=== PATIENT | female | born 1945 | race Caucasian/White ===

== ENCOUNTER → 2017-03-07 | Outpatient (CLI) | payer MEDICARE, BC ==
--- NOTE | 2017-03-09 12:14 | MM ---
Reason for exam: screening (asymptomatic). Last mammogram was performed 1 year ago. History: Patient is postmenopausal. Benign MG stereo VAD BX LT of the left breast, March 18, 2015. Physical Findings: A clinical breast exam by your physician is recommended on an annual basis and results should be correlated with mammographic findings. MG 3D Screening Mammo W/Cad Bilateral CC and MLO view(s) were taken. Prior study comparison: March 03, 2016, bilateral MG 3d screening mammo w/cad. September 22, 2015, left breast MG 3d diag mammo w/cad LT. March 05, 2015, left breast MG work up mamm w CAD LT. There are scattered fibroglandular densities. No suspicious abnormality. No significant changes when compared with prior studies. ASSESSMENT: Negative, BI-RAD 1 RECOMMENDATION: Routine screening mammogram of both breasts in 1 year.
== END | disposition home or self-care (01) ==
LOC: RADMAMWWP 11:44
PROVIDERS: ATTEND Family Medicine
DX: Z12.31 Encounter for screening mammogram for malignant neoplasm of breast (principal)
CPT/HCPCS: 77063; G0202

== ENCOUNTER → 2017-03-08 | Outpatient (CLI) | payer MEDICARE, BC ==
--- NOTE | 2017-03-08 12:57 | XR ---
EXAMINATION TYPE: XR tibia fibula LT DATE OF EXAM: 03/08/2017 CLINICAL HISTORY: Follow-up of a ladder with pain and bruising TECHNIQUE: Two views of the left leg are obtained. COMPARISON: None. FINDINGS: There is no acute fracture or dislocation seen in the left tibia or fibula. The left knee and ankle joints appear within normal limits. The overlying soft tissue appears unremarkable. IMPRESSION: There is no acute fracture or dislocation seen in the left tibia or fibula.
== END | disposition home or self-care (01) ==
LOC: RADXRMAIN 12:30
PROVIDERS: ATTEND Family Medicine
DX: M79.662 Pain in left lower leg (principal)

== ENCOUNTER → 2017-04-06 | Outpatient (CLI) | payer MEDICARE, BC ==
--- NOTE | 2017-04-06 15:51 | NM ---
EXAMINATION TYPE: NM hepatobiliary w EF DATE OF EXAM: 04/06/2017 COMPARISON: NONE HISTORY: 72 year-old female right upper quadrant pain TECHNIQUE: After the intravenous administration of 5.35 mCi Tc 99m Mebrofenin hepatobiliary scintigra phy is performed. Immediate images post injection. FINDINGS: There is satisfactory initial accumulation of tracer by the liver. The gallbladder is visualized wit hin 26 minutes. The small bowel activity is noted within 10 minutes. At one hour 8 ounces of oral e nsure plus is given to mimic CCK and gallbladder ejection fraction is calculated at 59 %, in the norm al range. Therefore there is no scintigraphic evidence of cystic or common bile duct obstruction to suggest acute cholecystitis or gallbladder dyskinesia. IMPRESSION: Exam is within normal limits.
== END | disposition home or self-care (01) ==
LOC: RADNMMAIN 12:41
PROVIDERS: ATTEND Family Medicine
DX: R10.11 Right upper quadrant pain (principal)
CPT/HCPCS: 78226; A9537

== ENCOUNTER → 2018-04-10 | Outpatient (CLI) | payer MEDICARE, BC ==
--- NOTE | 2018-04-10 08:57 | US ---
EXAMINATION TYPE: US carotid duplex BILAT DATE OF EXAM: 04/10/2018 COMPARISON: NONE CLINICAL HISTORY: R55.9. Family history of stenosis EXAM MEASUREMENTS: RIGHT: Peak Systolic Velocity (PSV) cm/sec ----- Right CCA: 58.4 ----- Right ICA: 98.2 ----- Right ECA: 97.8 ICA/CCA ratio: 1.7 RIGHT: End Diastole cm/sec ----- Right CCA: 19.1 ----- Right ICA: 32.2 ----- Right ECA: 13.1 LEFT: Peak Systolic Velocity (PSV) cm/sec ----- Left CCA: 83.4 ----- Left ICA: 88.9 ----- Left ECA: 57.5 ICA/CCA ratio: 1.1 LEFT: End Diastole cm/sec ----- Left CCA: 18.6 ----- Left ICA: 28.5 ----- Left ECA: 7.8 VERTEBRALS (direction of flow): Right Vertebral: Antegrade Left Vertebral: Antegrade Rhythm: Arrhythmia No significant stenosis seen IMPRESSION: 1. No diagnostic evidence of significant hemodynamic stenosis. 2. Cardiac dysrhythmia. Criteria for Assigning % of Stenosis / Diameter reduction (Estimation based on the indirect measurements of the internal carotid artery velocities (ICA PSV). 1. Normal (no stenosis)=ICA PSV < 125 cm/s: ratio < 2.0: ICA EDV<40 cm/s. 2. Less than 50% stenosis=ICA PSV < 125 cm/s: ratio < 2.0: ICA EDV<40 cm/s. 3. 50 to 69% stenosis=ICA PSV of 125 to 230 cm/s: ration 2.0 ? 4.0: ICA EDV 40-100 cm/s. 4. Greater than 70% stenosis to near occlusion= ICA PSV > 230 cm/s: ratio > 4.0: ICA EDV > 100 cm/s. 5. Near occlusion= ICA PSV velocities may be low or undetectable: variable ratio and ICA EDV. 6. Total occlusion=unable to detect flow.
--- NOTE | 2018-04-10 13:56 | EST ---
EXERCISE STRESS AGE: 73 SEX: F HT: 62" WT: 130 PROTOCOL: Stress Test STAGE: 3 DURATION OF EXERCISE: 8:30 HEART RATE REST: 67 BLOOD PRESSURE REST: 133/67 MAXIMUM HEART RATE ACHIEVED: 126 MAXIMUM BLOOD PRESSURE: 214/48 85% MPHR: 126 100% MPHR: 148 METS: 10.3 INDICATIONS: Chest pain. CLINICAL INFORMATION: Baseline rhythm is sinus mechanism, rate is 67, RSR prime. Poor R-wave progression. Baseline blood pressure 133/67 mmHg. Patient exercised on Leoncio protocol for 8 minutes 30 seconds reaching peak rate of 126 beats per minute which is equal to 85% maximum predicted heart rate. Peak blood pressure 214/48 mmHg. This was terminated due to fatigue. There was no chest pain. Electrocardiograph monitoring revealed occasional PVCs. There was no evidence of diagnostic ischemic ST deviation. CONCLUSION: 1. Good exercise tolerance with occasional premature ventricular contractions. 2. Normal cardiac response to exercise with no evidence of exercise induced ischemia. MMODL / IJN: [id number] /
== END ==
LOC: RADUSMAIN 08:04
PROVIDERS: ATTEND Family Medicine
DX: I49.9 Cardiac arrhythmia, unspecified (principal); R55 Syncope and collapse
CPT/HCPCS: 93017; 93880

== ENCOUNTER → 2018-04-12 | Outpatient (CLI) | payer MEDICARE, BC ==
--- NOTE | 2018-04-12 14:43 | CT ---
EXAMINATION TYPE: CT brain wo con DATE OF EXAM: 04/12/2018 COMPARISON: Prior head CT 03/25/2011 HISTORY: headaches CT DLP: 981 mGycm Automated exposure control for dose reduction was used. Helical acquisition through the brain. FINDINGS: Cerebral vascular calcifications are present. There is no hemorrhage or hydrocephalus. Calvarium is i ntact. Paranasal sinuses and mastoid air cells as visualized are normal. Orbits are symmetric. IMPRESSION: NO ACUTE ABNORMALITY.
--- NOTE | 2018-04-13 13:34 | ECHOF ---
Referral Reason:R07.89 chest Pain MEASUREMENTS -------- HEIGHT: 157.5 cm WEIGHT: 59.0 kg BP: RVIDd: 2.4 cm (< 3.3) IVSd: 0.8 cm (0.6 - 1.1) LVIDd: 4.4 cm (3.9 - 5.3) LVPWd: 0.9 cm (0.6 - 1.1) IVSs: 1.0 cm LVIDs: 3.1 cm LVPWs: 1.1 cm LA Diam: 2.8 cm (2.7 - 3.8) LAESV Index (A-L): 27.42 ml/m Ao Diam: 2.5 cm (2.0 - 3.7) AV Cusp: 1.7 cm (1.5 - 2.6) LA Diam: 3.7 cm (2.7 - 3.8) MV EXCURSION: 19.436 mm (> 18.000) MV EF SLOPE: 54 mm/s (70 - 150) EPSS: 0.3 cm MV E Yandel: 0.43 m/s MV DecT: 235 ms MV A Yandel: 0.69 m/s MV E/A Ratio: 0.63 AR PHT: 357 ms RAP: 5.00 mmHg RVSP: 27.98 mmHg FINDINGS -------- Sinus rhythm. This was a technically good study. LV size, wall thickness and systolic function are normal, with an EF greater than 55%. The left mejia tricular size is normal. The right ventricle is normal in size. The left atrial size is normal. The right atrial size is normal. There is mild aortic valve sclerosis. Trace amount of aortic regurgitation. The mitral valve leaflets are mildly thickened. Mild mitral regurgitation is present. Mild tricuspid regurgitation present. There is no evidence of pulmonary hypertension. The right v entricular systolic pressure, as measured by Doppler, is 27.98mmHg. There is no pulmonic regurgitation present. The aortic root size is normal. There is no pericardial effusion. CONCLUSIONS -------- 1. Sinus rhythm. 2. This was a technically good study. 3. LV size, wall thickness and systolic function are normal, with an EF greater than 55%. 4. The left ventricular size is normal. 5. The left atrial size is normal. 6. There is mild aortic valve sclerosis. 7. Trace amount of aortic regurgitation. 8. The mitral valve leaflets are mildly thickened. 9. Mild mitral regurgitation is present. 10. Mild tricuspid regurgitation present. 11. There is no evidence of pulmonary hypertension. 12. There is no pulmonic regurgitation present. 13. The aortic root size is normal. 14. There is no pericardial effusion. SPRAY PAINTER: Nury Lemon RDCS
== END | disposition home or self-care (01) ==
LOC: RADECHMAIN 13:50
PROVIDERS: ATTEND Family Medicine
DX: I08.3 Combined rheumatic disorders of mitral, aortic and tricuspid valves (principal); R55 Syncope and collapse
CPT/HCPCS: 70450; 93306

== ENCOUNTER → 2018-04-18 | Outpatient (CLI) | payer MEDICARE, BC ==
--- NOTE | 2018-04-20 07:53 | MM ---
Reason for exam: screening (asymptomatic). Last mammogram was performed 1 year and 1 month ago. History: Patient is postmenopausal. Benign MG stereo VAD BX LT of the left breast, March 18, 2015. Physical Findings: A clinical breast exam by your physician is recommended on an annual basis and results should be correlated with mammographic findings. MG 3D Screening Mammo W/Cad Bilateral CC and MLO view(s) were taken. Prior study comparison: March 07, 2017, bilateral MG 3d screening mammo w/cad. March 03, 2016, bilateral MG 3d screening mammo w/cad. There are scattered fibroglandular densities. Previous mammotome biopsy in the left breast. There is no discrete abnormality. ASSESSMENT: Benign, BI-RAD 2 RECOMMENDATION: Routine screening mammogram of both breasts in 1 year.
== END | disposition home or self-care (01) ==
LOC: RADMAMWWP 16:32
PROVIDERS: ATTEND Family Medicine
DX: Z12.31 Encounter for screening mammogram for malignant neoplasm of breast (principal)
CPT/HCPCS: 77063; 77067

== ENCOUNTER 2018-09-14 15:09 | Inpatient (IN) | payer MEDICARE, BC ==
[2018-09-14] MEDS ORDERED: NITROGLYCERIN OINT 1 INCH/GM PACKET TOPICAL STA (15:37)
[2018-09-14] MEDS ORDERED: ASPIRIN 81 MG PO STA (15:37)
--- NOTE | 2018-09-14 15:40 | ED ---
General Adult HPI - General Chief complaint: Chest Pain Stated complaint: Chest pain Time Seen by Provider: 09/14/18 15:15 Source: patient, RN notes reviewed Mode of arrival: ambulatory Limitations: no limitations - History of Present Illness Initial comments: This is a 73-year-old female who presents emergency Department with no significant past medical history. Patient comes in complaining of chest pain patient states started when she was doing some packing of white material and she had the pain under her right breast that radiated around into her back per patient states it was a significant pain and then she felt very weak on her legs and thought she might not be a little be strong enough to make it to her vehicle. Patient didn't think she was given a passout but just her legs were very weak at that time. Patient denies any difficulty breathing or shortness of breath per patient denies any nausea. Patient denies any diaphoretic episodes. Patient denies any recent injury. Patient does any heavy lifting or moving. Patient denies any recent fever chills or cough. Patient states the pain is worse with taking a deep breath but it is always kind of there for the last 2 hours. Patient states she does have a strong family history of heart disease. Patient denies any abdominal pain. Patient denies any nausea vomiting or diarrhea. Patient denies any leg swelling or calf tenderness. - Related Data Home Medications Medication Instructions Recorded Confirmed Ergocalciferol [Vitamin D2] 50,000 unit PO GUTIERREZ 09/14/18 09/14/18 Allergies Allergy/AdvReac Type Severity Reaction Status Date / Time nitrofurantoin AdvReac Chest Pain Verified 09/14/18 15:44 [From Macrobid] nitrofurantoin AdvReac Chest Pain Verified 09/14/18 15:44 macrocrystalline [From Macrobid] Review of Systems ROS Statement: Those systems with pertinent positive or pertinent negative responses have been documented in the HPI. ROS Other: All systems not noted in ROS Statement are negative. Past Medical History Past Medical History: GERD/Reflux, Osteoarthritis (OA) Additional Past Medical History / Comment(s): hiatal hernia, pleural effusions History of Any Multi-Drug Resistant Organisms: None Reported Past Surgical History: Bladder Surgery, Hysterectomy, Orthopedic Surgery Additional Past Surgical History / Comment(s): rt shoulder rotator cuff, thoracentesis/ c/t, RODERICK FUNDLOPLICATION Past Anesthesia/Blood Transfusion Reactions: No Reported Reaction Past Psychological History: No Psychological Hx Reported Smoking Status: Never smoker Past Alcohol Use History: None Reported Past Drug Use History: None Reported - Past Family History Mother Family Medical History: No Reported History Additional Family Medical History / Comment(s): at age 96 gave up after placement to longterm. Father Family Medical History: Dementia Additional Family Medical History / Comment(s): heart problems General Exam - General Exam Comments Initial Comments: GENERAL: Patient is well-developed and well-nourished. Patient is nontoxic and well- hydrated and is in mild distress ENT: Neck is soft and supple. No significant lymphadenopathy is noted. Oropharynx is clear. Moist mucous membranes. EYES: The sclera were anicteric and conjunctiva were pink and moist. Extraocular movements were intact and pupils were equal round and reactive to light. Eyelids were unremarkable. PULMONARY: Unlabored respirations. Good breath sounds bilaterally. No audible rales rhonchi or wheezing was noted. CARDIOVASCULAR: There is a regular rate and rhythm without any murmurs gallops or rubs. ABDOMEN: Soft and nontender with normal bowel sounds. No palpable organomegaly was noted. There is no palpable pulsatile mass. SKIN: Skin is clear with no lesions or rashes and otherwise unremarkable. NEUROLOGIC: Patient is alert and oriented x3. Cranial nerves II through XII are grossly intact. Motor and sensory are also intact. Normal speech, volume and content. Symmetrical smile. MUSCULOSKELETAL: Normal extremities with adequate strength and full range of motion. No lower extremity swelling or edema. No calf tenderness. LYMPHATICS: No significant lymphadenopathy is noted PSYCHIATRIC: Normal psychiatric evaluation. Limitations: no limitations Course Vital Signs 09/14/18 15:14 Temperature 97.8 F Pulse Rate 122 H Respiratory 18 Rate Blood Pressure 115/84 O2 Sat by Pulse 100 Oximetry Medical Decision Making - Medical Decision Making EKG shows sinus tachycardia at 101 bpm ME interval 262 QRS is 82 QT interval 356 QTC is 461. Patient's EKG shows no ST segment elevation or depression. Chest x-ray shows no acute abnormality. I gave the patient shot of Toradol because she did have some reproducible lateral chest wall pain. I spoke with Dr. Elias he agreed to admit the patient admitted the patient wrote admitting orders. I consulted cardiology continue Nitropaste and aspirin. - Lab Data Result diagrams: 09/14/18 15:30 03/08/19 15:30 Lab Results 09/14/18 09/14/18 09/14/18 Range/Units 15:30 15:30 15:30 WBC 11.1 H (3.8-10.6) k/uL RBC 3.40 L (3.80-5.40) m/uL Hgb 10.1 L (11.4-16.0) gm/dL Hct 30.5 L (34.0-46.0) % MCV 89.7 (80.0-100.0) fL MCH 29.6 (25.0-35.0) pg MCHC 33.0 (31.0-37.0) g/dL RDW 13.3 (11.5-15.5) % Plt Count 298 (150-450) k/uL Neutrophils % 73 % Lymphocytes % 21 % Monocytes % 4 % Eosinophils % 1 % Basophils % 0 % Neutrophils # 8.1 H (1.3-7.7) k/uL Lymphocytes # 2.3 (1.0-4.8) k/uL Monocytes # 0.4 (0-1.0) k/uL Eosinophils # 0.1 (0-0.7) k/uL Basophils # 0.0 (0-0.2) k/uL PT 10.3 (9.0-12.0) sec INR 1.0 (<1.2) APTT 23.2 (22.0-30.0) sec D-Dimer (<0.60) mg/L FEU Sodium 135 L (137-145) mmol/L Potassium 4.7 (3.5-5.1) mmol/L Chloride 105 (98-107) mmol/L Carbon Dioxide 24 (22-30) mmol/L Anion Gap 6 mmol/L BUN 54 H (7-17) mg/dL Creatinine 0.80 (0.52-1.04) mg/dL Est GFR (CKD-EPI)AfAm 85 (>60 ml/min/1.73 sqM) Est GFR (CKD-EPI)NonAf 74 (>60 ml/min/1.73 sqM) Glucose 111 H (74-99) mg/dL Calcium 9.0 (8.4-10.2) mg/dL Magnesium 1.6 (1.6-2.3) mg/dL Total Bilirubin 0.5 (0.2-1.3) mg/dL AST 16 (14-36) U/L ALT 32 (9-52) U/L Alkaline Phosphatase 50 (38-126) U/L Troponin I (0.000-0.034) ng/mL Total Protein 5.7 L (6.3-8.2) g/dL Albumin 3.3 L (3.5-5.0) g/dL 09/14/18 09/14/18 Range/Units 15:30 16:50 WBC (3.8-10.6) k/uL RBC (3.80-5.40) m/uL Hgb (11.4-16.0) gm/dL Hct (34.0-46.0) % MCV (80.0-100.0) fL MCH (25.0-35.0) pg MCHC (31.0-37.0) g/dL RDW (11.5-15.5) % Plt Count (150-450) k/uL Neutrophils % % Lymphocytes % % Monocytes % % Eosinophils % % Basophils % % Neutrophils # (1.3-7.7) k/uL Lymphocytes # (1.0-4.8) k/uL Monocytes # (0-1.0) k/uL Eosinophils # (0-0.7) k/uL Basophils # (0-0.2) k/uL PT (9.0-12.0) sec INR (<1.2) APTT (22.0-30.0) sec D-Dimer 0.45 (<0.60) mg/L FEU Sodium (137-145) mmol/L Potassium (3.5-5.1) mmol/L Chloride (98-107) mmol/L Carbon Dioxide (22-30) mmol/L Anion Gap mmol/L BUN (7-17) mg/dL Creatinine (0.52-1.04) mg/dL Est GFR (CKD-EPI)AfAm (>60 ml/min/1.73 sqM) Est GFR (CKD-EPI)NonAf (>60 ml/min/1.73 sqM) Glucose (74-99) mg/dL Calcium (8.4-10.2) mg/dL Magnesium (1.6-2.3) mg/dL Total Bilirubin (0.2-1.3) mg/dL AST (14-36) U/L ALT (9-52) U/L Alkaline Phosphatase (38-126) U/L Troponin I <0.012 (0.000-0.034) ng/mL Total Protein (6.3-8.2) g/dL Albumin (3.5-5.0) g/dL Disposition Clinical Impression: Chest pain Disposition: ADMITTED IP TO THIS HOSP Referrals: Jacques Robison DO [Primary Care Provider] - 1-2 days Time of Disposition: 17:57
[2018-09-14 16:00] LABS: Basophils % (A) 0 %; Eosinophils # (A) 0.1 k/uL (0-0.7); Eosinophils % (A) 1 %; HCT 30.5 % (34.0-46.0); HGB 10.1 gm/dL (11.4-16.0); Lymphocytes # (A) 2.3 k/uL (1.0-4.8); Lymphocytes % (A) 21 %; MCH 29.6 pg (25.0-35.0); MCV 89.7 fL (80.0-100.0); Mean Platelet Volume 7.1; Monocytes # (A) 0.4 k/uL (0-1.0); Monocytes % (A) 4 %; Neutrophils # (A) 8.1 k/uL (1.3-7.7); Neutrophils % (A) 73 %; Platelet Count 298 k/uL (150-450); RDW 13.3 % (11.5-15.5); WBC 11.1 k/uL (3.8-10.6)
[2018-09-14] MEDS ORDERED: SODIUM CHLORIDE 0.9% 1,000 ML IV ONE (16:01)
--- NOTE | 2018-09-14 16:09 | XR ---
EXAMINATION TYPE: XR chest 2V DATE OF EXAM: 09/14/2018 COMPARISON: 11/09/2015 HISTORY: Chest pain TECHNIQUE: Frontal and lateral views of the chest are obtained. FINDINGS: There is no focal air space opacity, pleural effusion, or pneumothorax seen. The cardiac silhouette size is within normal limits. The osseous structures are intact. There is partial visual ization of an S-shaped scoliotic curvature of the thoracolumbar spine. IMPRESSION: No acute cardiopulmonary process.
[2018-09-14 16:10] LABS: Albumin 3.3 g/dL (3.5-5.0); Magnesium 1.6 mg/dL (1.6-2.3); Potassium 4.7 mmol/L (3.5-5.1); Total Bilirubin 0.5 mg/dL (0.2-1.3); Total Protein 5.7 g/dL (6.3-8.2)
[2018-09-14 16:17] LABS: Partial Thromboplastin Time 23.2 sec (22.0-30.0); Prothrombin Time 10.3 sec (9.0-12.0)
[2018-09-14] MEDS ORDERED: KETOROLAC 60 MG/2 ML VIAL IVP STA (17:32)
[2018-09-14] MEDS ORDERED: NITROGLYCERIN SL TABS 0.4 MG TAB SUBLINGUAL PRN (17:58)
[2018-09-14] MEDS: NITROGLYCERIN OINT 1 INCH/GM PACKET TOPICAL SCH (18:32)
[2018-09-14] MEDS ORDERED: KETOROLAC 30 MG/ML 1 ML VIAL IVP SCH (21:00)
[2018-09-15] MEDS: NITROGLYCERIN OINT 1 INCH/GM PACKET TOPICAL SCH ×4 (01:08→16:47)
[2018-09-15 02:30] LABS: Cholesterol 138 mg/dL (<200); HDL Cholesterol 33 mg/dL (40-60); LDL Cholesterol,Calculated 70 mg/dL (0-99); Triglycerides 173 mg/dL (<150)
[2018-09-15 04:12] LABS: Basophils % (A) 0 %; Eosinophils # (A) 0.2 k/uL (0-0.7); Eosinophils % (A) 2 %; HCT 23.7 % (34.0-46.0); Hypochromasia Slight; Lymphocytes # (A) 2.8 k/uL (1.0-4.8); Lymphocytes % (A) 35 %; MCHC 31.1 g/dL (31.0-37.0); Mean Platelet Volume 7.4; Monocytes # (A) 0.5 k/uL (0-1.0); Monocytes % (A) 6 %; Neutrophils # (A) 4.3 k/uL (1.3-7.7); Neutrophils % (A) 54 %; Platelet Count 234 k/uL (150-450); RBC 2.55 m/uL (3.80-5.40); RDW 13.7 % (11.5-15.5); WBC 7.9 k/uL (3.8-10.6)
[2018-09-15 04:17] LABS: HGB 7.4 gm/dL (11.4-16.0)
[2018-09-15 04:24] LABS: Anion Gap 4 mmol/L; Blood Urea Nitrogen 59 mg/dL (7-17); Carbon Dioxide 21 mmol/L (22-30); Chloride 112 mmol/L (98-107); Glucose 92 mg/dL (74-99); Potassium 4.3 mmol/L (3.5-5.1); Sodium 137 mmol/L (137-145)
[2018-09-15] MEDS ORDERED: ASPIRIN 325 MG TAB PO SCH (09:00)
[2018-09-15 12:24] LABS: HCT 24.1 % (34.0-46.0); HGB 7.6 gm/dL (11.4-16.0); MCH 28.9 pg (25.0-35.0); MCHC 31.4 g/dL (31.0-37.0); MCV 92.2 fL (80.0-100.0); Mean Platelet Volume 7.4; Platelet Count 245 k/uL (150-450); RBC 2.61 m/uL (3.80-5.40); RDW 13.7 % (11.5-15.5); WBC 10.8 k/uL (3.8-10.6)
[2018-09-15] MEDS ORDERED: SODIUM FERRIC GLUCONAT-SUCROSE 125 MG in SODIUM CHLORIDE 0.9% 100 ML IVPB ONE (13:05)
--- NOTE | 2018-09-15 13:05 | P.HPIM ---
History of Present Illness H&P Date: 09/15/18 Chief Complaint: chest pain This is a 73-year-old female patient of Dr. Robison with past medical history for gastroesophageal reflux disease, osteoarthritis, hiatal hernia status post Roderick fundoplication. Patient complains of right sided chest pain under her breast and went to the back. She states this started when she was cleaning up the apartment and it lasted for at least a couple hours and most the day yesterday. She denies any heartburn, reflux, abdominal bloating. No tenderness is noted. No rashes noted. Patient does state that she has had b lack bowel movement and not sure how long this has been going on. Her last colonoscopy was [address] Lyons. Patient came into [facility] emergency center for evaluation. She has been afebrile, heart rate in the 80s, blood pressure 124/58, pulse ox 97% on room air. Troponins have been negative on 3 draws. Patient was noted to have a drop in her hemoglobin from 10.1-7.4. She did receive 1 L of fluids in the emergency center. Creatinine is 0.75 and BUN is 59. D-dimer 0.45. Triglycerides 173, cholesterol 138, LDL 70, HDL 33. EKG is sinus rhythm with no acute ST changes. Chest x-ray shows no acute abnormality. Patient has been placed on the cardiac stepdown unit and cardiology consult requested. We are discontinuing aspirin and asking for a consult with GI and stool to be obtained for occult blood. Iron studies ordered and patient will be given 1 dose of Ferrlecit IV. Review of Systems All systems: negative Constitutional: Denies chills, Denies fatigue, Denies fever, Denies weakness, Denies weight loss Eyes: denies blurred vision, denies diplopia, denies pain Ears, nose, mouth and throat: Denies dysphagia, Denies headache, Denies mouth pain, Denies sore throat, Denies vertigo Cardiovascular: Denies chest pain, Denies decreased exercise tolerance, Denies edema, Denies lightheadedness, Denies shortness of breath, Denies syncope Respiratory: Denies cough, Denies dyspnea, Denies excessive sputum, Denies hemoptysis, Denies home oxygen, Denies wheezing Gastrointestinal: Reports melena, Denies abdominal pain, Denies bloating, Denies coffee ground emesis, Denies diarrhea, Denies dyspepsia, Denies excessive gas, Denies heartburn, Denies hematemesis, Denies hematochezia, Denies loss of appetite, Denies nausea, Denies vomiting Genitourinary: Denies dysuria, Denies hematuria Musculoskeletal: Denies frequent falls, Denies gait dysfunction, Denies myalgias Integumentary: Denies pruritus, Denies rash, Denies wounds Neurological: Denies numbness, Denies weakness Psychiatric: Denies anxiety, Denies depression Endocrine: Denies fatigue, Denies weight change Past Medical History Past Medical History: GERD/Reflux, Osteoarthritis (OA) Additional Past Medical History / Comment(s): hiatal hernia, pleural effusions History of Any Multi-Drug Resistant Organisms: None Reported Past Surgical History: Bladder Surgery, Hysterectomy, Orthopedic Surgery Additional Past Surgical History / Comment(s): rt shoulder rotator cuff, thoracentesis/ c/t, RODERICK FUNDLOPLICATION -2014 Past Anesthesia/Blood Transfusion Reactions: No Reported Reaction Smoking Status: Never smoker Additional Past Alcohol Use History / Comment(s): Patient is a lifelong nonsmoker. She denies any marijuana or illicit drug use. No alcohol use. - Past Family History Mother Family Medical History: No Reported History Additional Family Medical History / Comment(s): Mother at age 96 from old age with history of hypertension. Father Family Medical History: Dementia Additional Family Medical History / Comment(s): Father in his 50s and patient does not know cause of his her medical history. Brother(s) Additional Family Medical History / Comment(s): Patient is a total of 5 surgeries one brother has had heart surgery, one brother has history of CVA and otherwise she does not know their medical history. Sister(s) Additional Family Medical History / Comment(s): The patient has 2 sisters and one from a brain aneurysm Daughter(s) Additional Family Medical History / Comment(s): Patient has 2 sons and one daughter and one has history of thyroid and hypertension Medications and Allergies Home Medications Medication Instructions Recorded Confirmed Type Ergocalciferol [Vitamin D2] 50,000 unit PO GUTIERREZ 09/14/18 09/14/18 History Allergies Allergy/AdvReac Type Severity Reaction Status Date / Time nitrofurantoin AdvReac Chest Pain Verified 09/14/18 15:44 [From Macrobid] nitrofurantoin AdvReac Chest Pain Verified 09/14/18 15:44 macrocrystalline [From Macrobid] Physical Exam Vitals: Vital Signs Temp Pulse Pulse Resp BP BP Pulse Ox 09/15/18 08:00 98 F 87 16 121/58 97 09/15/18 03:27 97.9 F 85 17 98/50 96 09/15/18 00:00 87 17 09/14/18 23:07 98.3 F 87 17 100/54 97 09/14/18 20:00 98.3 F 86 17 118/56 99 09/14/18 19:01 98.3 F 85 20 124/58 99 09/14/18 18:00 78 16 122/60 99 09/14/18 17:00 81 15 103/67 99 09/14/18 15:14 97.8 F 122 H 18 115/84 100 Intake and Output 09/14/18 09/15/18 09/15/18 22:59 06:59 14:59 Intake Total 800 Balance 800 Intake: Oral 800 Other: Voiding Method Toilet Toilet Toilet # Voids 2 Weight 57.606 kg 58.9 kg Gen: This is a 73-year-old female. She is resting in bed and appears to be comfortable and in no acute distress. HEENT: Head is atraumatic, normocephalic. Pupils equal, round. Sclerae is anicteric. NECK: Supple. No JVD. No lymphadenopathy. No thyromegaly. LUNGS: Clear to auscultation. No wheezes or rhonchi. No intercostal retractions. HEART: Regular rate and rhythm. No murmur. ABDOMEN: Soft. Bowel sounds are present. No masses. No tenderness. EXTREMITIES: No pedal edema. No calf tenderness. NEUROLOGICAL: Patient is awake, alert and oriented x3. Cranial nerves 2 through 12 are grossly intact. Results CBC & Chem 7: 09/15/18 12:04 09/15/18 03:42 Labs: Abnormal Lab Results - Last 24 Hours (Table) 09/14/18 09/14/18 09/14/18 Range/Units 15:30 15:30 15:30 WBC 11.1 H (3.8-10.6) k/uL RBC 3.40 L (3.80-5.40) m/uL Hgb 10.1 L (11.4-16.0) gm/dL Hct 30.5 L (34.0-46.0) % Neutrophils # 8.1 H (1.3-7.7) k/uL Sodium 135 L (137-145) mmol/L Chloride (98-107) mmol/L Carbon Dioxide (22-30) mmol/L BUN 54 H (7-17) mg/dL Glucose 111 H (74-99) mg/dL Calcium (8.4-10.2) mg/dL Total Protein 5.7 L (6.3-8.2) g/dL Albumin 3.3 L (3.5-5.0) g/dL Triglycerides 173 H (<150) mg/dL HDL Cholesterol 33 L (40-60) mg/dL 09/15/18 09/15/18 Range/Units 03:42 03:42 WBC (3.8-10.6) k/uL RBC 2.55 L (3.80-5.40) m/uL Hgb 7.4 L D (11.4-16.0) gm/dL Hct 23.7 L (34.0-46.0) % Neutrophils # (1.3-7.7) k/uL Sodium (137-145) mmol/L Chloride 112 H (98-107) mmol/L Carbon Dioxide 21 L (22-30) mmol/L BUN 59 H (7-17) mg/dL Glucose (74-99) mg/dL Calcium 8.0 L (8.4-10.2) mg/dL Total Protein (6.3-8.2) g/dL Albumin (3.5-5.0) g/dL Triglycerides (<150) mg/dL HDL Cholesterol (40-60) mg/dL Thrombosis Risk Factor Assmnt - DVT/VTE Prophylaxis DVT/VTE Prophylaxis: Pharmacologic Prophylaxis ordered - Choose All That Apply Each Risk Factor Represents 2 Points: Age 61-74 years Thrombosis Risk Factor Assessment Total Risk Factor Score: 2 Thrombosis Risk Factor Assessment Level: Low Risk Assessment and Plan Plan: 1. Right-sided chest pain. Troponins have been negative. Cardiology consult. 2. Acute GI bleed, most likely upper source. Anemia studies ordered, stool for occult blood to be sent, Ferrlecit 1 dose ordered, consults with GI for possible EGD/colonoscopy. Patient's last colonoscopy was 10 years ago. 3. Possible acute blood loss anemia. Monitor hemoglobin. 4. Gastroesophageal reflux disease and hiatal hernia status post Roderick fu ndoplication. 5. Osteoarthritis generalized. 6. DVT prophylaxis. SCDs and JOCELYNE floode. Patient placed as an observation status. Discharge plan: Home on Monday Impression and plan of care have been directed as dictated by the signing physician. Rupinder Dixon nurse practitioner acting as scribe for signing physician.
--- NOTE | 2018-09-15 14:40 | P.CRDCN ---
History of Present Illness History of present illness: This is a pleasant 73-year-old female with no significant past medical history she denies history of coronary artery disease, hypertension, dyslipidemia or diabetes mellitus. We have been asked to see her in consultation for chest pain. She states yesterday while doing some light housework at home she started feeling a sharp pain under the right breast with radiation through to the back associated with dizziness and weakness of the legs and nausea. She denies associated vomiting, shortness of breath or palpitations. no diaphoresis. These symptoms persisted for the next couple of hours until she decided to present to the hospital. Upon arrival she was given Toradol which relieved her pain. EKG reveals sinus mechanism with nonspecific abnormalities noted. Chest x-ray is negative for an acute cardiopulmonary process. Lab data reviewed reveals WBC 11.1 on admission repeat today 10.8, hemoglobin on admission 10.1 down to 7.6 today, platelets 245, d-dimer 0.45, sodium 137, potassium 4.3, creatinine 0.75, magnesium 1.6,cardiac enzymes negative 3, LDL 70, HDL 33. She takes no daily cardiac medications. She is seen and examined laying flat resting comfortably in bed in no acute distress. She denies any further symptoms of chest discomfort. She states she has been having some black stools recently. No active paulie blood or pain. At the time of my exam: CONSTITUTIONAL: Denies fever. Denies chills. EYES: Denies blurred vision. Denies vision changes. Denies eye pain. EARS, NOSE, MOUTH & THROAT: Denies headache. Denies sore throat. Denies ear pain. CARDIOVASCULAR: Denies chest pain. Denies shortness of breath. Denies orthopnea. Denies PND. Denies palpitations. RESPIRATORY: Denies cough. GASTROINTESTINAL: Denies abdominal pain. Denies diarrhea. Denies constipation. Denies nausea. Denies vomiting. Describes some black stools lately. MUSCULOSKELETAL: Denies myalgias. INTEGUMENTARY: Denies pruitis. Denies rash. NEUROLOGIC: Denies numbness. Denies tingling. Denies weakness. PSYCHIATRIC: Denies anxiety. Denies depression. ENDOCRINE: Denies fatigue. Denies weight change. Denies polydipsia. Denies polyurina. GENITOURINARY: Denies burning, hematuria or urgency with micturation. HEMATOLOGIC: Denies history of anemia. Denies bleeding. Blood pressure 121/58 heart rate 87 afebrile maintaining oxygen saturation on room air GENERAL: This is a 73-year-old female in no apparent distress at the time of my examination. HEENT: Head is atraumatic, normocephalic. Pupils are equal, round. Sclerae anicteric. Conjunctivae are clear. Mucous membranes of the mouth are moist. Neck is supple. There is no jugular venous distention. No carotid bruit is heard. LUNGS: Clear to auscultation no wheezes, rales or rhonchi. No chest wall tenderness is noted on palpation or with deep breathing. HEART: Regular rate and rhythm without murmurs, rubs or gallops. S1 and S2 heard. ABDOMEN: Soft, nontender. Bowel sounds are heard. No organomegaly noted. EXTREMITIES: No evidence of peripheral edema and no calf tenderness noted. VASCULAR: Radial and dorsalis pedis pulses palpated, no evidence of clubbing. NEUROLOGIC: Patient is awake, alert and oriented x3. ASSESSMENT Chest pain, atypical. An acute coronary event has been ruled out. Anemia, unknown etiology possible upper GI bleed. PLAN An acute coronary event has been ruled out. Symptoms not suggestive of angina. Fatigue and weakness may be related to anemia. Ongoing medical management and evaluation by GI services. Stable from a cardiac perspective. Thank you kindly for this consultation. Nurse Practitioner note has been reviewed, I agree with a documented findings and plan of care. Patient was seen and examined. Past Medical History Past Medical History: GERD/Reflux, Osteoarthritis (OA) Additional Past Medical History / Comment(s): hiatal hernia, pleural effusions History of Any Multi-Drug Resistant Organisms: None Reported Past Surgical History: Bladder Surgery, Hysterectomy, Orthopedic Surgery Additional Past Surgical History / Comment(s): rt shoulder rotator cuff, thoracentesis/ c/t, RODERICK FUNDLOPLICATION -2014 Past Anesthesia/Blood Transfusion Reactions: No Reported Reaction Smoking Status: Never smoker - Past Family History Mother Family Medical History: No Reported History Additional Family Medical History / Comment(s): at age 96 gave up after placement to custodial. Father Family Medical History: Dementia Additional Family Medical History / Comment(s): heart problems Brother(s) Additional Family Medical History / Comment(s): Patient is a total of 5 surgeries one brother has had heart surgery, one brother has history of CVA and otherwise she does not know their medical history. Sister(s) Additional Family Medical History / Comment(s): The patient has 2 sisters and one from a brain aneurysm Daughter(s) Additional Family Medical History / Comment(s): Patient has 2 sons and one daughter and one has history of thyroid and hypertension Medications and Allergies Home Medications Medication Instructions Recorded Confirmed Type Ergocalciferol [Vitamin D2] 50,000 unit PO GUTIERREZ 09/14/18 09/14/18 History Allergies Allergy/AdvReac Type Severity Reaction Status Date / Time nitrofurantoin AdvReac Chest Pain Verified 09/14/18 15:44 [From Macrobid] nitrofurantoin AdvReac Chest Pain Verified 09/14/18 15:44 macrocrystalline [From Macrobid] Physical Exam Vitals: Vital Signs Temp Pulse Pulse Resp BP BP Pulse Ox 09/15/18 08:00 98 F 87 16 121/58 97 09/15/18 03:27 97.9 F 85 17 98/50 96 09/15/18 00:00 87 17 09/14/18 23:07 98.3 F 87 17 100/54 97 09/14/18 20:00 98.3 F 86 17 118/56 99 09/14/18 19:01 98.3 F 85 20 124/58 99 09/14/18 18:00 78 16 122/60 99 09/14/18 17:00 81 15 103/67 99 09/14/18 15:14 97.8 F 122 H 18 115/84 100 Intake and Output 09/14/18 09/15/18 09/15/18 22:59 06:59 14:59 Intake Total 800 Balance 800 Intake: Oral 800 Other: Voiding Method Toilet Toilet Toilet # Voids 2 Weight 57.606 kg 58.9 kg Results 09/15/18 12:04 09/15/18 03:42 Cardiac Enzymes 09/14/18 09/14/18 09/14/18 Range/Units 15:30 15:30 21:22 AST 16 (14-36) U/L Troponin I <0.012 <0.012 (0.000-0.034) ng/mL 09/15/18 Range/Units 03:42 AST (14-36) U/L Troponin I <0.012 (0.000-0.034) ng/mL Coagulation 09/14/18 Range/Units 15:30 PT 10.3 (9.0-12.0) sec APTT 23.2 (22.0-30.0) sec Lipids 09/14/18 Range/Units 15:30 Triglycerides 173 H (<150) mg/dL Cholesterol 138 (<200) mg/dL HDL Cholesterol 33 L (40-60) mg/dL CBC 09/14/18 09/15/18 Range/Units 15:30 03:42 WBC 11.1 H 7.9 (3.8-10.6) k/uL RBC 3.40 L 2.55 L (3.80-5.40) m/uL Hgb 10.1 L 7.4 L D (11.4-16.0) gm/dL Hct 30.5 L 23.7 L (34.0-46.0) % Plt Count 298 234 (150-450) k/uL Comprehensive Metabolic Panel 09/14/18 09/15/18 Range/Units 15:30 03:42 Sodium 135 L 137 (137-145) mmol/L Potassium 4.7 4.3 (3.5-5.1) mmol/L Chloride 105 112 H (98-107) mmol/L Carbon Dioxide 24 21 L (22-30) mmol/L BUN 54 H 59 H (7-17) mg/dL Creatinine 0.80 0.75 (0.52-1.04) mg/dL Glucose 111 H 92 (74-99) mg/dL Calcium 9.0 8.0 L (8.4-10.2) mg/dL AST 16 (14-36) U/L ALT 32 (9-52) U/L Alkaline Phosphatase 50 (38-126) U/L Total Protein 5.7 L (6.3-8.2) g/dL Albumin 3.3 L (3.5-5.0) g/dL Current Medications Generic Name Dose Route Start Last Admin Trade Name Freq PRN Reason Stop Dose Admin Aspirin 325 mg 09/15/18 09:00 09/15/18 08:48 Aspirin PO 325 mg DAILY KHLOE Administration Nitroglycerin 1 inch 09/14/18 18:00 09/15/18 05:53 Nitro-Bid Oint TOPICAL Not Given Q6HR [facility] Nitroglycerin 0.4 mg 09/14/18 17:58 09/14/18 20:35 Nitrostat SUBLINGUAL 0.4 mg Q5M PRN Administration Chest Pain Intake and Output 09/14/18 09/15/18 09/15/18 22:59 06:59 14:59 Intake Total 800 Balance 800 Intake: Oral 800 Other: Voiding Method Toilet Toilet Toilet # Voids 2 Weight 57.606 kg 58.9 kg 09/15/18 03:42 09/15/18 03:42
[2018-09-15 16:36] LABS: Iron Saturation 36.9 (12.00-45.00)
[2018-09-15] MEDS: PANTOPRAZOLE 40 MG TABLET PO SCH (16:47)
[2018-09-15 19:28] LABS: MCH 31.7 pg (25.0-35.0); MCHC 34.7 g/dL (31.0-37.0); MCV 91.5 fL (80.0-100.0); Mean Platelet Volume 7.1; Platelet Count 216 k/uL (150-450); RBC 2.13 m/uL (3.80-5.40); RDW 13.6 % (11.5-15.5); WBC 7.7 k/uL (3.8-10.6)
[2018-09-15 19:33] LABS: HCT 19.5 % (34.0-46.0); HGB 6.7 gm/dL (11.4-16.0)
[2018-09-15] MEDS ORDERED: FUROSEMIDE 10 MG/ML 2 ML VIAL IV PRN (20:24)
[2018-09-16] MEDS: NITROGLYCERIN OINT 1 INCH/GM PACKET TOPICAL SCH ×4 (01:03→17:05)
[2018-09-16 03:37] LABS: Basophils % (A) 0 %; Eosinophils # (A) 0.3 k/uL (0-0.7); Eosinophils % (A) 3 %; HCT 26.4 % (34.0-46.0); Lymphocytes % (A) 28 %; MCV 90.8 fL (80.0-100.0); Monocytes # (A) 0.5 k/uL (0-1.0); Monocytes % (A) 5 %; Neutrophils # (A) 6.6 k/uL (1.3-7.7); Neutrophils % (A) 63 %; Platelet Count 241 k/uL (150-450); RDW 14.4 % (11.5-15.5); WBC 10.5 k/uL (3.8-10.6)
[2018-09-16 04:11] LABS: HGB 8.7 gm/dL (11.4-16.0)
[2018-09-16] MEDS: PANTOPRAZOLE 40 MG TABLET PO SCH ×2 (07:05→17:05)
[2018-09-16 07:25] LABS: Basophils % (A) 0 %; Eosinophils # (A) 0.1 k/uL (0-0.7); Eosinophils % (A) 1 %; HCT 24.3 % (34.0-46.0); Lymphocytes # (A) 2.2 k/uL (1.0-4.8); Lymphocytes % (A) 22 %; MCH 29.2 pg (25.0-35.0); MCHC 32.7 g/dL (31.0-37.0); MCV 89.3 fL (80.0-100.0); Mean Platelet Volume 7.5; Monocytes # (A) 0.5 k/uL (0-1.0); Monocytes % (A) 5 %; Neutrophils % (A) 71 %; Platelet Count 229 k/uL (150-450); RBC 2.73 m/uL (3.80-5.40); RDW 14.5 % (11.5-15.5); WBC 9.8 k/uL (3.8-10.6)
[2018-09-16 07:30] LABS: Anion Gap 5 mmol/L; Blood Urea Nitrogen 41 mg/dL (7-17); Calcium 8.2 mg/dL (8.4-10.2); Carbon Dioxide 24 mmol/L (22-30); Chloride 108 mmol/L (98-107); Glucose 97 mg/dL (74-99); Potassium 3.9 mmol/L (3.5-5.1); Sodium 137 mmol/L (137-145)
[2018-09-16 12:08] LABS: HCT 24.3 % (34.0-46.0); HGB 7.8 gm/dL (11.4-16.0); MCH 28.6 pg (25.0-35.0); MCV 89.3 fL (80.0-100.0); Mean Platelet Volume 7.4; Platelet Count 240 k/uL (150-450); RBC 2.72 m/uL (3.80-5.40); RDW 14.3 % (11.5-15.5); WBC 11.6 k/uL (3.8-10.6)
--- NOTE | 2018-09-16 15:03 | P.PN ---
Subjective This is a 73-year-old female patient of Dr. Robison with past medical history for gastroesophageal reflux disease, osteoarthritis, hiatal hernia status post Thong fundoplication. Patient complains of right sided chest pain under her breast and went to the back. She states this started when she was cleaning up the apartment and it lasted for at least a couple hours and most the day yesterday. She denies any heartburn, reflux, abdominal bloating. No tenderness is noted. No rashes noted. Patient does state that she has had black bowel movement and not sure how long this has been going on. Her last colonoscopy was [address] Lyons. Patient came into [facility] emergency center for evaluation. She has been afebrile, heart rate in the 80s, blood pressure 124/58, pulse ox 97% on room air. Troponins have been negative on 3 draws. Patient was noted to have a drop in her hemoglobin from 10.1-7.4. She did receive 1 L of fluids in the emergency center. Creatinine is 0.75 and BUN is 59. D-dimer 0.45. Triglycerides 173, cholesterol 138, LDL 70, HDL 33. EKG is sinus rhythm with no acute ST changes. Chest x-ray shows no acute abnormality. Patient has been placed on the cardiac stepdown unit and cardiology consult requested. We are discontinuing aspirin and asking for a consult with GI and stool to be obtained for occult blood. Iron studies ordered and patient will be given 1 dose of Ferrlecit IV. 09/16: Patient remains afebrile, heart rate in the 80s, blood pressure 110/53, 98% on room air. Hemoglobin 7.8, BUN 41, creatinine 0.47. Iron 100, TIBC 271, iron saturation 36.9, ferritin 40.8. Patient did receive 1 unit of packed red blood cells yesterday, she continues to have dark tarry stools and right lower quadrant tenderness. GI consulted, patient remains on clear liquid diet will be nothing by mouth after midnight for possible EGD. Cardiology consult appreciated Objective - Vital Signs Vital signs: Vital Signs Temp 97.9 F 09/16/18 11:42 Pulse 83 09/16/18 11:42 Resp 18 09/16/18 11:42 BP 110/53 09/16/18 11:42 Pulse Ox 98 09/16/18 11:42 Intake & Output 09/15/18 09/16/18 09/16/18 17:59 06:59 18:59 Intake Total 400 Balance 400 Weight Intake: Oral 400 Blood Product As-1 Unit [id number] Other: Voiding Method Toilet # Voids # Bowel Movements - Constitutional General appearance: Present: average body habitus, cooperative, no acute distr ess - Respiratory Respiratory: bilateral: CTA, negative: dullness, rales, rhonchi, wheezing - Cardiovascular Rhythm: regular Heart sounds: normal: S1, S2 - Gastrointestinal General gastrointestinal: Present: normal bowel sounds, soft, tenderness. Absent: distended, organomegaly Localized gastrointestinal: tender: RLQ - Neurologic Neurologic: Present: CNII-XII intact. Absent: focal deficits - Musculoskeletal Musculoskeletal: Present: gait normal, generalized weakness, strength equal bilaterally - Psychiatric Psychiatric: Present: A&O x's 3, appropriate affect, intact judgment & insight - Labs CBC & Chem 7: 09/16/18 12:00 09/16/18 06:58 Labs: Abnormal Lab Results - Last 24 Hours (Table) 09/14/18 09/15/18 09/15/18 Range/Units 15:30 12:04 18:59 WBC 10.8 H (3.8-10.6) k/uL RBC 2.61 L 2.13 L (3.80-5.40) m/uL Hgb 7.6 L 6.7 L* (11.4-16.0) gm/dL Hct 24.1 L 19.5 L* (34.0-46.0) % Chloride (98-107) mmol/L BUN (7-17) mg/dL Calcium (8.4-10.2) mg/dL Stool Occult Blood (Negative) Crossmatch See Detail 09/15/18 09/16/18 09/16/18 Range/Units 19:03 03:22 06:58 WBC (3.8-10.6) k/uL RBC 2.90 L (3.80-5.40) m/uL Hgb 8.7 L D (11.4-16.0) gm/dL Hct 26.4 L (34.0-46.0) % Chloride 108 H (98-107) mmol/L BUN 41 H (7-17) mg/dL Calcium 8.2 L (8.4-10.2) mg/dL Stool Occult Blood Positive H (Negative) Crossmatch 09/16/18 Range/Units 06:58 WBC (3.8-10.6) k/uL RBC 2.73 L (3.80-5.40) m/uL Hgb 8.0 L (11.4-16.0) gm/dL Hct 24.3 L (34.0-46.0) % Chloride (98-107) mmol/L BUN (7-17) mg/dL Calcium (8.4-10.2) mg/dL Stool Occult Blood (Negative) Crossmatch Assessment and Plan Plan: 1. Right-sided chest pain. Troponins have been negative. Cardiology consult. 2. Acute GI bleed, most likely upper source. Anemia studies completed, stool for occult blood positive, Ferrlecit 1 dose, consults with GI for possible EGD/ colonoscopy. Patient's last colonoscopy was 10 years ago, patient given one unit of packed red blood cells 09/15. 3. Possible acute blood loss anemia. Monitor hemoglobin. 4. Gastroesophageal reflux disease and hiatal hernia status post Thong fundoplication. 5. Osteoarthritis generalized. 6. DVT prophylaxis. SCDs and JOCELYNE andrews. The above impression and plan of care have been discussed and directed by signing physician. Socorro Sears nurse practitioner acting as scribe for signing physician.
[2018-09-17] MEDS: NITROGLYCERIN OINT 1 INCH/GM PACKET TOPICAL SCH ×4 (00:42→17:42)
[2018-09-17] MEDS: PANTOPRAZOLE 40 MG TABLET PO SCH ×2 (06:01→17:58)
[2018-09-17 09:51] LABS: Basophils # (A) 0.1 k/uL (0-0.2); Basophils % (A) 1 %; Eosinophils # (A) 0.1 k/uL (0-0.7); Eosinophils % (A) 2 %; HGB 8.1 gm/dL (11.4-16.0); Lymphocytes # (A) 2.7 k/uL (1.0-4.8); Lymphocytes % (A) 29 %; MCH 30.9 pg (25.0-35.0); MCHC 33.6 g/dL (31.0-37.0); MCV 91.8 fL (80.0-100.0); Mean Platelet Volume 6.9; Monocytes # (A) 0.6 k/uL (0-1.0); Monocytes % (A) 7 %; Neutrophils # (A) 5.5 k/uL (1.3-7.7); Neutrophils % (A) 61 %; Platelet Count 271 k/uL (150-450); RBC 2.61 m/uL (3.80-5.40); WBC 9.1 k/uL (3.8-10.6)
[2018-09-17 10:01] LABS: Anion Gap 5 mmol/L; Blood Urea Nitrogen 22 mg/dL (7-17); Calcium 8.6 mg/dL (8.4-10.2); Carbon Dioxide 24 mmol/L (22-30); Chloride 109 mmol/L (98-107); Glucose 90 mg/dL (74-99); Potassium 4.1 mmol/L (3.5-5.1); Sodium 138 mmol/L (137-145)
[2018-09-17 11:06] VITALS: RESP 16; TEMP 98.2
[2018-09-17] MEDS ORDERED: LIDOCAINE 1% INJ 10MG/ML (20 ML MDV) ONE (16:33)
[2018-09-17] MEDS ORDERED: PROPOFOL 10 MG/ML 20 ML VIAL IV ONE (16:33)
[2018-09-17] MEDS ORDERED: LACTATED RINGERS 1,000 ML IV ONE ×2 (16:38)
--- NOTE | 2018-09-17 17:23 | P.PCN ---
Date of Procedure: 09/17/18 Procedure(s) Performed: Procedure: Esophagogastroduodenoscopy and biopsy. Preoperative diagnosis: GI bleeding and anemia. Postoperative diagnosis: 1. Antral gastritis and duodenitis with no active bleeding at the time of this exam. 2. Biopsies obtained from the antrum to rule out H. pylori infection. Preparation and sedation: Was provided by anesthesia. Brief clinical history: The patient is a 73-year-old female with past medical history of gastroesophageal reflux disease, osteoarthritis, hiatal hernia status post Thong fundoplication. Patient complained of right sided chest pain under her breast radiating to the back. She states this started when she was cleaning up the apartment and it lasted for at least a couple hours and most the day the day prior to admission. She denied any heartburn, reflux, abdominal bloating. Patient does state that she has had black bowel movement and not sure how long this has been going on. Her last colonoscopy was 10 years ago. Troponins have been negative on 3 draws. Patient was noted to have a drop in her hemoglobin from 10.1-7.4. Low-dose hemoglobin this admission was 6.7, today its 8.1. The details are summarized in the history and physical and dictated consultations and progress notes. Procedure: With the patient on her left lateral decubitus position and after informed consent and adequate sedation, I passed the Olympus-GIF H190 video upper endoscope through the cricopharyngeus down the esophagus. There was no evidence of esophagitis or complicated reflux disease. The Thong fundoplication appeared in place. The endoscope was then passed into the stomach which was insufflated with air and inspected in detail including the retroflex view in the cardia. There was some mottling and erythema in the antrum and a few fading erosions but no ulcers or active bleeding. Pyloric channel did not show any ulcers. Duodenal bulb showed some mottling and erythema and minimal friability without any ulcers or erosions. Post bulbar area and descending duodenum appeared normal. There was no evidence of bleeding at the time of this exam. I obtained biopsies from the antrum then the endoscope was withdrawn. The patient tolerated the procedure well. Plan: The patient was reassured. Will await biopsy results for H. pylori infection. We will continue medical therapy for gastritis and duodenitis. Consideration can be given for elective colonoscopy as outpatient since she had had no colonoscopy for more than 10 years and since we did not find a major bleeding lesion on this exam today.
[2018-09-17 17:41] VITALS: BP 125/60; PULSE 72
--- NOTE | 2018-09-17 19:46 | P.CONS ---
History of Present Illness - Reason for Consult Consult date: 09/16/18 Black stools, GI bleed - History of Present Illness The patient is a 73-year-old female with past medical history of gastro esophageal reflux disease, osteoarthritis, hiatal hernia status post Roderick fundoplication. Patient complained of right sided chest pain under her breast radiating to the back. She states this started when she was cleaning up the apartment and it lasted for at least a couple hours and most the day the day prior to admission. She denied any heartburn, reflux, abdominal bloating. Patient does state that she has had black bowel movement and not sure how long this has been going on. Her last colonoscopy was 10 years ago. Troponins have been negative on 3 draws. Patient was noted to have a drop in her hemoglobin from 10.1-7.4. Lowest hemoglobin this admission was 6.7, today its 8.1. Review of Systems Constitutional: Denied fever, chills or unintentional weight loss Neurologic: No headaches, double vision or other sensory or motor changes Cardiopulmonary: No chest pains, shortness of breath or palpitations Gastrointestinal: See present illness above Genitourinary: No hematuria, dysuria or frequency Endocrine: No history of diabetes or thyroid disease Hematologic: No history of anemia or bleeding tendency Musculoskeletal: No joint pains or swelling Skin: No rashes Psychiatric: No anxiety or depression Past Medical History Past Medical History: GERD/Reflux, Osteoarthritis (OA) Additional Past Medical History / Comment(s): hiatal hernia, pleural effusions History of Any Multi-Drug Resistant Organisms: None Reported Past Surgical History: Bladder Surgery, Hysterectomy, Orthopedic Surgery Additional Past Surgical History / Comment(s): rt shoulder rotator cuff, thoracentesis/ c/t, RODERICK FUNDLOPLICATION Past Anesthesia/Blood Transfusion Reactions: No Reported Reaction Smoking Status: Never smoker - Past Family History Brother(s) Additional Family Medical History / Comment(s): Patient is a total of 5 surgeries one brother has had heart surgery, one brother has history of CVA and otherwise she does not know their medical history. Sister(s) Additional Family Medical History / Comment(s): The patient has 2 sisters and one from a brain aneurysm Daughter(s) Additional Family Medical History / Comment(s): Patient has 2 sons and one daughter and one has history of thyroid and hypertension Mother Family Medical History: No Reported History Additional Family Medical History / Comment(s): at age 89 gave up after placement to residential. Father Family Medical History: Dementia Additional Family Medical History / Comment(s): heart problems Medications and Allergies Home Medications Medication Instructions Recorded Confirmed Type Ergocalciferol [Vitamin D2 50,000 unit PO GUTIERREZ 09/14/18 09/14/18 History (ISDSHERICE)] Pantoprazole [Protonix] 40 mg PO AC-BID #60 tablet. 09/17/18 Rx Allergies Allergy/AdvReac Type Severity Reaction Status Date / Time nitrofurantoin AdvReac Chest Pain Verified 09/14/18 15:44 [From Macrobid] nitrofurantoin AdvReac Chest Pain Verified 09/14/18 15:44 macrocrystalline [From Macrobid] Physical Exam Vitals: Vital Signs Temp Pulse Pulse Resp BP BP Pulse Ox 09/16/18 11:42 97.9 F 83 16 110/53 98 09/16/18 08:00 97.6 F 93 18 112/59 99 09/16/18 03:38 85 18 09/16/18 03:36 98 F 85 18 115/75 97 09/16/18 01:11 98 F 83 17 108/58 97 09/16/18 00:00 98 F 86 17 125/65 97 09/15/18 23:15 98 F 86 17 118/56 97 09/15/18 22:45 98.3 F 90 17 107/53 98 09/15/18 22:44 98.3 F 90 17 107/53 98 09/15/18 22:35 98 F 84 18 122/56 98 09/15/18 20:00 98.2 F 82 17 125/62 97 09/15/18 16:00 98.2 F 91 18 104/52 95 09/15/18 11:12 98.1 F 86 18 102/55 97 Intake and Output 09/15/18 09/16/18 09/16/18 21:59 06:59 14:59 Intake Total 400 Balance 400 Intake: Oral 400 Blood Product Rc As-1 Unit [id number] Other: Voiding Method Toilet # Voids # Bowel Movements Weight General: Appeared stated age, very pleasant in no acute distress Head and neck: Normocephalic and atraumatic, conjunctivae pink and sclerae not icteric, mucous membranes moist and pink. No masses in the neck or tracheal shifts Lungs: Clear to auscultation with no dullness to percussion Heart: Regular, no abnormal sounds, murmurs, gallops or friction rubs ABDOMEN: Soft no masses, organomegalies or tenderness. Bowel sounds present Extremities: No clubbing, cyanosis or edema Neurologic: Alert and oriented 3. Cranial nerves grossly intact. No gross sensory or motor other abnormalities Results CBC & Chem 7: 09/17/18 09:17 09/17/18 09:17 Labs: Abnormal Lab Results - Last 24 Hours (Table) 09/14/18 09/15/18 09/15/18 Range/Units 15:30 12:04 18:59 WBC 10.8 H (3.8-10.6) k/uL RBC 2.61 L 2.13 L (3.80-5.40) m/uL Hgb 7.6 L 6.7 L* (11.4-16.0) gm/dL Hct 24.1 L 19.5 L* (34.0-46.0) % Chloride (98-107) mmol/L BUN (7-17) mg/dL Calcium (8.4-10.2) mg/dL Stool Occult Blood (Negative) Crossmatch See Detail 09/15/18 09/16/18 09/16/18 Range/Units 19:03 03:22 06:58 WBC (3.8-10.6) k/uL RBC 2.90 L (3.80-5.40) m/uL Hgb 8.7 L D (11.4-16.0) gm/dL Hct 26.4 L (34.0-46.0) % Chloride 108 H (98-107) mmol/L BUN 41 H (7-17) mg/dL Calcium 8.2 L (8.4-10.2) mg/dL Stool Occult Blood Positive H (Negative) Crossmatch 09/16/18 Range/Units 06:58 WBC (3.8-10.6) k/uL RBC 2.73 L (3.80-5.40) m/uL Hgb 8.0 L (11.4-16.0) gm/dL Hct 24.3 L (34.0-46.0) % Chloride (98-107) mmol/L BUN (7-17) mg/dL Calcium (8.4-10.2) mg/dL Stool Occult Blood (Negative) Crossmatch Assessment and Plan Assessment: 73-year-old female with atypical chest pain, black stools and drop in hemoglobin. The possibility of peptic ulcer disease should be considered. Plan: We will proceed with upper endoscopy tomorrow.
--- NOTE | 2018-09-18 09:01 | P.DS ---
Providers Date of admission: 09/16/18 07:40 Expected date of discharge: 09/17/18 Attending physician: Adrienne Elias Consults: 09/14/18 17:58 Consult Physician Urgent Consulting Provider: [facility] Consult Reason/Comments: chest ppain Do you want consulting provider notified?: Yes 09/15/18 10:59 Consult Physician Routine Consulting Provider: Roopa Givens Consult Reason/Comments: black stools, gib Do you want consulting provider notified?: Yes Primary care physician: Jacques GarnerBetsy Layne [facility] Course: This is a 73-year-old female patient of Dr. Robison with past medical history for gastroesophageal reflux disease, osteoarthritis, hiatal hernia status post Thong fundoplication. Patient complains of right sided chest pain under her breast and went to the back. She states this started when she was cleaning up the apartment and it lasted for at least a couple hours and most the day yesterday. She denies any heartburn, reflux, abdominal bloating. No tenderness is noted. No rashes noted. Patient does state that she has had black bowel movement and not sure how long this has been going on. Her last colonoscopy was [address] Lyons. Patient came into [facility] emergency center for evaluation. She has been afebrile, heart rate in the 80s, blood pressure 124/58, pulse ox 97% on room air. Troponins have been negative on 3 draws. Patient was noted to have a drop in her hemoglobin from 10.1-7.4. She did receive 1 L of fluids in the emergency center. Creatinine is 0.75 and BUN is 59. D-dimer 0.45. Triglycerides 173, cholesterol 138, LDL 70, HDL 33. EKG is sinus rhythm with no acute ST changes. Chest x-ray shows no acute abnormality. Patient has been placed on the cardiac stepdown unit and cardiology consult requested. We are discontinuing aspirin and asking for a consult with GI and stool to be obtained for occult blood. Iron studies ordered and patient will be given 1 dose of Ferrlecit IV. 09/16: Patient remains afebrile, heart rate in the 80s, blood pressure 110/53, 98% on room air. Hemoglobin 7.8, BUN 41, creatinine 0.47. Iron 100, TIBC 271, iron saturation 36.9, ferritin 40.8. Patient did receive 1 unit of packed red blood cells yesterday, she continues to have dark tarry stools and right lower quadrant tenderness. GI consulted, patient remains on clear liquid diet will be nothing by mouth after midnight for possible EGD. Cardiology consult appreciated 09/17: Patient underwent EGD and biopsy with Dr. Landis today. This found antral gastritis and duodenitis and no active bleeding at the time of the exam. Biopsies were obtained from the antrum to rule out H. pylori infection. Pathology reports are currently pending. Hemoglobin is stable at 8.1. Creatinine 0.76. Patient will be discharged home today in stable condition. Discharge diagnoses: 1. Right-sided chest pain. Troponins have been negative. Acute coronary syndrome ruled out. 2. Acute GI bleed secondary to gastritis and duodenitis. Status post transfusion of 1 unit of packed RBCs. 3. Possible acute blood loss anemia. 4. Gastroesophageal reflux disease and hiatal hernia status post Thong fundoplication. 5. Osteoarthritis generalized. Discharge plan: Home Impression and plan of care have been directed as dictated by the signing physician. Rupinder Dixon nurse practitioner acting as scribe for signing physician. Patient Condition at Discharge: Good Plan - Discharge Summary Discharge Rx Participant: Yes New Discharge Prescriptions: New Pantoprazole [Protonix] 40 mg PO AC-BID #60 tablet.dr Coffman Ergocalciferol [Vitamin D2 (DRISDOL)] 50,000 unit PO GUTIERREZ Discharge Medication List Ergocalciferol [Vitamin D2 (DRISDOL)] 50,000 unit PO GUTIERREZ 09/14/18 [History] Pantoprazole [Protonix] 40 mg PO AC-BID #60 tablet. 09/17/18 [Rx] Follow up Appointment(s)/Referral(s): Mendoza Landis MD [STAFF PHYSICIAN] - 10/02/18 3:30 pm (Monday) Jacques Robison DO [Primary Care Provider] - 1 Week (Spoke to safety engineer pressure vessels. Office will call with appointment time) Patient Instructions/Handouts: Gastritis (DC), Gastrointestinal Bleeding (DC), Low Fiber Diet (DC), Upper Endoscopy (DC) Activity/Diet/Wound Care/Special Instructions: Soft. Low fiber diet for one week. Discharge Disposition: HOME SELF-CARE
== END 2018-09-17 18:50 | disposition home or self-care (01) | DRG 378 ==
LOC: EC 15:09 → 3SCARD 17:58 → OBSVTOIN 09-16 07:40
PROVIDERS: ADMIT Family Medicine; ATTEND Family Medicine
PROC: 30233N1 Transfusion of Nonautologous Red Blood Cells into Peripheral Vein, Percutaneous Approach (ICD-10-PCS; 2018-09-15)
PROC: 0DB78ZX Excision of Stomach, Pylorus, Via Natural or Artificial Opening Endoscopic, Diagnostic (ICD-10-PCS; principal; 2018-09-17 09:35)
DX: K29.71 Gastritis, unspecified, with bleeding (principal); D62 Acute posthemorrhagic anemia; K29.81 Duodenitis with bleeding; K21.9 Gastro-esophageal reflux disease without esophagitis; R07.89 Other chest pain; M15.9 Polyosteoarthritis, unspecified; Z79.899 Other long term (current) drug therapy; Z90.710 Acquired absence of both cervix and uterus; Z87.19 Personal history of other diseases of the digestive system; Z88.1 Allergy status to other antibiotic agents; Z81.8 Family history of other mental and behavioral disorders; Z82.49 Family history of ischemic heart disease and other diseases of the circulatory system; Z82.3 Family history of stroke; Z83.49 Family history of other endocrine, nutritional and metabolic diseases
CPT/HCPCS: 36415; 43239; 71046; 80048; 80053; 80061; 82272; 82728; 83540; 83550; 83735; 84484; 85025; 85027; 85379; 85610; 85730; 86850; 86900; 86901; 86920; 93005; 94760; 96361; 96374; 99285

== ENCOUNTER → 2018-10-19 | Outpatient (CLI) | payer MEDICARE, BC ==
[2018-10-19 11:22] LABS: Basophils % (A) 0 %; Eosinophils # (A) 0.2 k/uL (0-0.7); Eosinophils % (A) 2 %; HCT 35.7 % (34.0-46.0); HGB 10.9 gm/dL (11.4-16.0); Hypochromasia Marked; Lymphocytes # (A) 2.2 k/uL (1.0-4.8); Lymphocytes % (A) 22 %; MCH 27.1 pg (25.0-35.0); MCHC 30.5 g/dL (31.0-37.0); MCV 88.7 fL (80.0-100.0); Mean Platelet Volume 7.2; Monocytes # (A) 0.6 k/uL (0-1.0); Monocytes % (A) 6 %; Neutrophils % (A) 69 %; Platelet Count 465 k/uL (150-450); Poikilocytosis Slight; RBC 4.03 m/uL (3.80-5.40); RDW 14.2 % (11.5-15.5); WBC 10.1 k/uL (3.8-10.6)
[2018-10-19 17:40] LABS: Iron Saturation 5.57 (12.00-45.00)
== END | disposition home or self-care (01) ==
LOC: LAB 09:49
PROVIDERS: ATTEND Internal Medicine Gastroenterology
DX: D64.9 Anemia, unspecified (principal)
CPT/HCPCS: 82607; 82746; 82784; 83516; 83540; 83550; 85025

== ENCOUNTER → 2019-03-18 | Outpatient (CLI) | payer MEDICARE, BC ==
--- NOTE | 2019-03-18 09:11 | XR ---
EXAMINATION TYPE: XR chest 2V DATE OF EXAM: 03/18/2019 COMPARISON: Chest x-ray September 14, 2018 HISTORY: Chest pain after lifting strain injury. TECHNIQUE: Frontal and lateral views of the chest are obtained. FINDINGS: There is right mid lung linear scarring. There is some chronic left basilar parenchymal ch anges without suspicious new focal air space opacity, pleural effusion, or pneumothorax seen. The ca rdiac silhouette size is within normal limits. S-shaped scoliosis is noted. IMPRESSION: No acute cardiopulmonary process. No significant change from prior.
== END | disposition home or self-care (01) ==
LOC: RADXRMAIN 08:45
PROVIDERS: ATTEND Family Medicine
DX: R07.9 Chest pain, unspecified (principal)
CPT/HCPCS: 71046

== ENCOUNTER → 2019-06-13 | Outpatient (CLI) | payer MEDICARE, BC ==
--- NOTE | 2019-06-14 13:55 | MM ---
Reason for exam: screening (asymptomatic). Last mammogram was performed 1 year and 2 months ago. History: Patient is postmenopausal. Benign MG stereo VAD BX LT of the left breast, March 18, 2015. Physical Findings: A clinical breast exam by your physician is recommended on an annual basis and results should be correlated with mammographic findings. MG 3D Screening Mammo W/Cad Bilateral CC and MLO view(s) were taken. Prior study comparison: April 18, 2018, bilateral MG 3d screening mammo w/cad. March 07, 2017, bilateral MG 3d screening mammo w/cad. There are scattered fibroglandular densities. Left biopsy marker. No significant changes when compared with prior studies. ASSESSMENT: Negative, BI-RAD 1 RECOMMENDATION: Routine screening mammogram of both breasts in 1 year.
== END | disposition home or self-care (01) ==
LOC: RADMAMWWP 07:06
PROVIDERS: ATTEND Family Medicine
DX: Z12.31 Encounter for screening mammogram for malignant neoplasm of breast (principal)
CPT/HCPCS: 77063; 77067

== ENCOUNTER → 2019-06-18 | Outpatient (CLI) | payer MEDICARE, BC ==
--- NOTE | 2019-06-18 09:53 | XR ---
EXAMINATION TYPE: XR cervical spine comp DATE OF EXAM: 06/18/2019 COMPARISON: NONE HISTORY: Pain TECHNIQUE: Four views are submitted. FINDINGS: The odontoid is intact. There are no compression deformities. The prevertebral soft tissue structur es are within normal limits. There is an anterolisthesis of C5 relative to C6 measuring 2 mm. Multil evel hypertrophic change seen with degenerative disc disease at C6-C7. Multilevel facet arthropathy. Foraminal encroachment suspected at levels C5-6 and C6-C7 bilaterally greater on the right lung apice s clear. IMPRESSION: 1. Multilevel hypertrophic changes and facet arthropathy with a grade 1 anterior listhesis of C5 rela tive to C6. MRI recommended. 2. Severe degenerative disc disease C6-C7. Bilateral foraminal encroachment greater on the right at C 5-6 and C6-C7.
== END | disposition home or self-care (01) ==
LOC: RADXRMAIN 09:30
PROVIDERS: ATTEND Family Medicine
DX: M50.323 Other cervical disc degeneration at C6-C7 level (principal); M43.12 Spondylolisthesis, cervical region; M46.92 Unspecified inflammatory spondylopathy, cervical region
CPT/HCPCS: 72050

== ENCOUNTER → 2019-07-09 | Outpatient (CLI) | payer MEDICARE, BC ==
--- NOTE | 2019-07-09 10:04 | MR ---
MRI CERVICAL SPINE: CLINICAL HISTORY: Degenerative disc disease per order. Neck pain with hand numbness for interpretatio n. TECHNIQUE: Multiplanar, multisequence imaging of the cervical spine is performed without contrast. COMPARISON: Cervical spine x-ray June 18, 2019. FINDINGS: Sagittal images of the cervical spine show the craniocervical junction to appear within nor mal limits. The cervical and upper thoracic spinal cord is normal in course, caliber, and signal. St able slight grade 1 retrolisthesis C6 on C7. The vertebral height are normal. Mild to moderate disc space narrowing C6-C7 level with mild anterior spurring. The bone marrow signal intensity is within n ormal limits. Axial images show the C2-C3 and C3-C4 level to appear within normal limits. Axial images at C4-C5 level shows central disc protrusion producing anterior thecal sac. Uncovertebra l facet degenerative changes are noted bilaterally causing mild bilateral neural foraminal narrowing. Axial images at C5-C6 level show tiny central disc protrusion mildly effacing the anterior thecal sac . Axial images at C6-C7 levels from broad-based right precentral disc protrusion effacing the anterior thecal sac and causing asymmetric mild to moderate right-sided neural foraminal narrowing. Axial images at C7-T1 level are within normal limits. IMPRESSION: Multilevel degenerative changes mid to lower cervical spine most prominent at C6-C7 level as detailed above.
== END | disposition home or self-care (01) ==
LOC: RADMRIMAIN 09:14
PROVIDERS: ATTEND Family Medicine
DX: M47.812 Spondylosis without myelopathy or radiculopathy, cervical region (principal)
CPT/HCPCS: 72141

== ENCOUNTER → 2020-04-08 | Outpatient (CLI) | payer MEDICARE, BC ==
--- NOTE | 2020-04-08 08:41 | XR ---
EXAMINATION TYPE: XR humerus RT DATE OF EXAM: 04/08/2020 COMPARISON: NONE HISTORY: Pain TECHNIQUE: 2 views submitted. FINDINGS: Osseous structures intact. No acute fracture.. Arthropathy of the shoulder. IMPRESSION: 1. No acute fracture or dislocation.
== END | disposition home or self-care (01) ==
LOC: RADXRMAIN 08:18
PROVIDERS: ATTEND Family Medicine
DX: M79.621 Pain in right upper arm (principal)

== ENCOUNTER 2020-04-29 09:29 | Inpatient (IN) | payer MEDICARE, BC ==
[2020-04-29] MEDS ORDERED: SODIUM CHLORIDE 0.9% 500 ML 500 ML IV STA (10:17)
[2020-04-29] MEDS ORDERED: ASPIRIN 81 MG PO STA (10:18)
[2020-04-29 10:34] LABS: Basophils # (A) 0.1 k/uL (0-0.2); Basophils % (A) 1 %; Eosinophils # (A) 0.3 k/uL (0-0.7); Eosinophils % (A) 2 %; HCT 41.6 % (34.0-46.0); HGB 13.6 gm/dL (11.4-16.0); Lymphocytes # (A) 1.6 k/uL (1.0-4.8); Lymphocytes % (A) 13 %; MCH 30.1 pg (25.0-35.0); MCHC 32.6 g/dL (31.0-37.0); MCV 92.2 fL (80.0-100.0); Mean Platelet Volume 6.7; Monocytes % (A) 8 %; Neutrophils # (A) 9.7 k/uL (1.3-7.7); Neutrophils % (A) 75 %; Platelet Count 476 k/uL (150-450); RBC 4.51 m/uL (3.80-5.40); RDW 13.2 % (11.5-15.5); WBC 12.9 k/uL (3.8-10.6)
[2020-04-29 10:41] LABS: Albumin 3.3 g/dL (3.5-5.0); Calcium 8.9 mg/dL (8.4-10.2); Total Bilirubin 0.9 mg/dL (0.2-1.3); Total Protein 6.4 g/dL (6.3-8.2)
[2020-04-29 10:45] LABS: Amorphous Sediment,Urine Occasional /hpf; Appearance,Urine Cloudy (Clear); Bilirubin,Urine Negative (Negative); Blood,Urine Large (Negative); Color,Urine Light Red; Glucose,Urine (UA) Negative (Negative); Hyaline Casts,Urine 2 /lpf (0-2); Ketones,Urine Negative (Negative); Leukocyte Esterase,Urine Trace (Negative); Mucus,Urine Moderate /hpf; Nitrite,Urine Negative (Negative); PH, Urine 5.5 (5.0-8.0); Protein,Urine 2+ (Negative); RBC,Urine 75 /hpf (0-5); Specific Gravity,Urine 1.019 (1.001-1.035); Squamous Epithelial Cell,Urine 2 /hpf (0-4); Urobilinogen,Urine <2.0 mg/dL (<2.0); WBC,Urine 26 /hpf (0-5)
[2020-04-29 10:46] LABS: Potassium 5.1 mmol/L (3.5-5.1)
--- NOTE | 2020-04-29 11:03 | CT ---
EXAMINATION TYPE: CT brain wo con DATE OF EXAM: 04/29/2020 HISTORY: Headache CT DLP: 1129.4 mGycm. Automated Exposure Control for Dose Reduction was Utilized. TECHNIQUE: CT scan of the head is performed without contrast. COMPARISON: CT brain April 12, 2018. FINDINGS: There is no acute intracranial hemorrhage or midline shift identified. There is diffuse v entricular and sulcal prominence consistent with diffuse age-related cerebral atrophy. There is low- attenuation in the periventricular white matter consistent with chronic small vessel ischemic change. New [id number] mucosal thickening and patchy fluid in the right sphenoid sinus otherwise para nasal sinuses remain clear. Globes are intact bilaterally. IMPRESSION: No acute intracranial hemorrhage or midline shift. There is mild diffuse age-related ce rebral atrophy and chronic small vessel ischemic change redemonstrated without significant interval c hange. New Acute on chronic right sphenoid sinus disease noted. Correlate clinically.
--- NOTE | 2020-04-29 11:04 | XR ---
EXAMINATION TYPE: XR chest 2V DATE OF EXAM: 04/29/2020 CLINICAL HISTORY: cough, fever. TECHNIQUE: Frontal and lateral view of the chest. COMPARISON: 03/18/2019 chest radiograph FINDINGS: The cardiomediastinal silhouette is within normal limits for size. Pulmonary vasculature i s normal. Mild haziness is of the left costophrenic angle likely atelectasis. There is no focal air s pace opacity, pleural effusion, or pneumothorax seen. Redemonstrated levocurvature of the lumbar spin e. IMPRESSION: Left basilar atelectasis. No focal airspace opacity.
[2020-04-29] MEDS ORDERED: AZITHROMYCIN 500 MG in SODIUM CHLORIDE 0.9% 250 ML IVPB STA (12:04)
[2020-04-29] MEDS ORDERED: NITROGLYCERIN SL TABS 0.4 MG TAB SUBLINGUAL PRN (12:15)
--- NOTE | 2020-04-29 12:16 | ED ---
General Adult HPI - General Chief complaint: Shortness of Breath Stated complaint: SOB, cough Time Seen by Provider: 04/29/20 10:10 Source: patient, RN notes reviewed, old records reviewed Mode of arrival: ambulatory Limitations: no limitations - History of Present Illness Initial comments: 75-year-old female patient presents to ED for evaluation. Patient states that for the last 2 weeks or so she has had a cough, frontal headaches, patient is having some pain in her proximal sternal region. Reports that when she coughs she has some shortness of breath. Denies any shortness of breath at baseline. She was seen by her primary care provider today who recommended that she be admitted for likely pneumonia and tested for Covid 19. Patient reported fever of 102F at home. Systemic: Pt denies fatigue, chills, rash. Pt denies weakness, night sweats, weight loss. Neuro: Pt denies headache, visual disturbances, syncope or pre-syncope. HEENT: Pt denies ocular discharge or irritation, otalgia, rhinorrhea, pharyngitis or notable lymphadenopathy. Cardiopulmonary: Pt denies heart palpitations, dyspnea on exertion. Abdominal/GI: Pt denies n/v/d. : Pt denies dysuria, burning w/ urination, frequency/urgency. Denies new onset urinary or bowel incontinence. MSK: Pt denies myalgia, loss of strength or function in extremities. Neuro: Pt denies new onset weakness, paresthesias. - Related Data Home Medications Medication Instructions Recorded Confirmed Ergocalciferol [Vitamin D2 50,000 unit PO GUTIERREZ 09/14/18 04/29/20 (DRISDOL)] Ferrous Sulfate [Feosol] 325 mg PO DAILY 04/29/20 04/29/20 Allergies Allergy/AdvReac Type Severity Reaction Status Date / Time nitrofurantoin AdvReac Chest Pain Verified 04/29/20 11:20 [From Macrobid] nitrofurantoin AdvReac Chest Pain Verified 04/29/20 11:20 macrocrystalline [From Macrobid] Review of Systems ROS Statement: Those systems with pertinent positive or pertinent negative responses have been documented in the HPI. ROS Other: All systems not noted in ROS Statement are negative. Past Medical History Past Medical History: GERD/Reflux, Osteoarthritis (OA) Additional Past Medical History / Comment(s): hiatal hernia, pleural effusions History of Any Multi-Drug Resistant Organisms: None Reported Past Surgical History: Bladder Surgery, Hysterectomy, Orthopedic Surgery Additional Past Surgical History / Comment(s): rt shoulder rotator cuff, thoracentesis/ c/t, RODERICK FUNDLOPLICATION Past Anesthesia/Blood Transfusion Reactions: No Reported Reaction Past Psychological History: No Psychological Hx Reported Smoking Status: Never smoker Past Alcohol Use History: None Reported Past Drug Use History: None Reported - Past Family History Brother(s) Additional Family Medical History / Comment(s): Patient is a total of 5 surgeries one brother has had heart surgery, one brother has history of CVA and otherwise she does not know their medical history. Sister(s) Additional Family Medical History / Comment(s): The patient has 2 sisters and one from a brain aneurysm Daughter(s) Additional Family Medical History / Comment(s): Patient has 2 sons and one daughter and one has history of thyroid and hypertension Mother Family Medical History: No Reported History Additional Family Medical History / Comment(s): at age 96 gave up after placement to shelter. Father Family Medical History: Dementia Additional Family Medical History / Comment(s): heart problems General Exam - General Exam Comments Initial Comments: Constitutional: NAD, AOX3, Pt has pleasant affect. HEENT: NC/AT, trachea midline, neck supple, no lymphadenopathy. External ears appear normal, without discharge. Mucous membranes moist. Eyes PERRLA, EOM intact. There is no scleral icterus. No pallor noted. Cardiopulmonary: RRR, no murmurs, rubs or gallops, no JVD noted. Lungs CTAB in anterior and posterior leon. No peripheral edema. Abdominal exam: Abdomen soft and non-distended. Abdomen non-tender to palpation in all 4 quadrants. Bowel sounds active in LLQ. No hepatosplenomegaly. No ecchymosis Neuro: CN II-XII grossly intact. No nuchal rigidity. No raccon eyes, no oliveira sign, no hemotympanum. No cervical spinal tenderness. MSK: No posterior calf tenderness bilaterally, homans sign negative bilaterally. Posterior tibialis and radial pulse +2 bilaterally. Sensation intact in upper and lower extremities. Full active ROM in upper and lower extremities, 5/5 stregnth. Limitations: no limitations Course Vital Signs 10/04/29/20 04/29/20 09:46 10:14 10:38 Temperature 98.9 F Pulse Rate 100 97 Respiratory 20 18 18 Rate Blood Pressure 122/76 141/75 O2 Sat by Pulse 97 97 Oximetry 04/29/20 12:03 Temperature Pulse Rate 81 Respiratory 14 Rate Blood Pressure 141/75 O2 Sat by Pulse 98 Oximetry Medical Decision Making - Medical Decision Making 75-year-old female patient to ED for evaluation of cough, fever. This has been ongoing for the last 2 weeks. Patient also reports that she's been having frontal headaches. Patient vital signs are stable, afebrile. Physical exam displayed intact neurologic exam. Laboratory investigations display leukocytosis. Brain CT displays sinus disease. Chest x-ray displayed left bibasilar atelectasis. EKG is nonischemic. Patient tested for Covid 19. Patient initiated on IV antibiotics. Will be admitted for further evaluation. Case discussed with Dr. Elam. - Lab Data Result diagrams: 04/29/20 10:23 04/29/20 10:23 Lab Results 04/29/20 04/29/20 04/29/20 Range/Units 10:23 10:23 10:23 WBC 12.9 H (3.8-10.6) k/uL RBC 4.51 (3.80-5.40) m/uL Hgb 13.6 (11.4-16.0) gm/dL Hct 41.6 (34.0-46.0) % MCV 92.2 (80.0-100.0) fL MCH 30.1 (25.0-35.0) pg MCHC 32.6 (31.0-37.0) g/dL RDW 13.2 (11.5-15.5) % Plt Count 476 H (150-450) k/uL Neutrophils % 75 % Lymphocytes % 13 % Monocytes % 8 % Eosinophils % 2 % Basophils % 1 % Neutrophils # 9.7 H (1.3-7.7) k/uL Lymphocytes # 1.6 (1.0-4.8) k/uL Monocytes # 1.0 (0-1.0) k/uL Eosinophils # 0.3 (0-0.7) k/uL Basophils # 0.1 (0-0.2) k/uL Sodium 134 L (137-145) mmol/L Potassium 5.1 (3.5-5.1) mmol/L Chloride 105 (98-107) mmol/L Carbon Dioxide 23 (22-30) mmol/L Anion Gap 6 mmol/L BUN 16 (7-17) mg/dL Creatinine 0.89 (0.52-1.04) mg/dL Est GFR (CKD-EPI)AfAm 74 (>60 ml/min/1.73 sqM) Est GFR (CKD-EPI)NonAf 64 (>60 ml/min/1.73 sqM) Glucose 96 (74-99) mg/dL Plasma Lactic Acid Florentino (0.7-2.0) mmol/L Calcium 8.9 (8.4-10.2) mg/dL Total Bilirubin 0.9 (0.2-1.3) mg/dL AST 24 (14-36) U/L ALT 11 (4-34) U/L Alkaline Phosphatase 66 (38-126) U/L Troponin I (0.000-0.034) ng/mL Total Protein 6.4 (6.3-8.2) g/dL Albumin 3.3 L (3.5-5.0) g/dL Lipase 51 (23-300) U/L Urine Color Urine Appearance (Clear) Urine pH (5.0-8.0) Ur Specific Pope (1.001-1.035) Urine Protein (Negative) Urine Glucose (UA) (Negative) Urine Ketones (Negative) Urine Blood (Negative) Urine Nitrite (Negative) Urine Bilirubin (Negative) Urine Urobilinogen (<2.0) mg/dL Ur Leukocyte Esterase (Negative) Urine RBC (0-5) /hpf Urine WBC (0-5) /hpf Ur Squamous Epith Cells (0-4) /hpf Amorphous Sediment (None) /hpf Hyaline Casts (0-2) /lpf Urine Mucus (None) /hpf Influenza Type A RNA Not Detected (Not Detectd) Influenza Type B (PCR) Not Detected (Not Detectd) 04/29/20 04/29/20 04/29/20 Range/Units 10:23 10:31 10:37 WBC (3.8-10.6) k/uL RBC (3.80-5.40) m/uL Hgb (11.4-16.0) gm/dL Hct (34.0-46.0) % MCV (80.0-100.0) fL MCH (25.0-35.0) pg MCHC (31.0-37.0) g/dL RDW (11.5-15.5) % Plt Count (150-450) k/uL Neutrophils % % Lymphocytes % % Monocytes % % Eosinophils % % Basophils % % Neutrophils # (1.3-7.7) k/uL Lymphocytes # (1.0-4.8) k/uL Monocytes # (0-1.0) k/uL Eosinophils # (0-0.7) k/uL Basophils # (0-0.2) k/uL Sodium (137-145) mmol/L Potassium (3.5-5.1) mmol/L Chloride (98-107) mmol/L Carbon Dioxide (22-30) mmol/L Anion Gap mmol/L BUN (7-17) mg/dL Creatinine (0.52-1.04) mg/dL Est GFR (CKD-EPI)AfAm (>60 ml/min/1.73 sqM) Est GFR (CKD-EPI)NonAf (>60 ml/min/1.73 sqM) Glucose (74-99) mg/dL Plasma Lactic Acid Florentino 1.4 (0.7-2.0) mmol/L Calcium (8.4-10.2) mg/dL Total Bilirubin (0.2-1.3) mg/dL AST (14-36) U/L ALT (4-34) U/L Alkaline Phosphatase (38-126) U/L Troponin I <0.012 (0.000-0.034) ng/mL Total Protein (6.3-8.2) g/dL Albumin (3.5-5.0) g/dL Lipase (23-300) U/L Urine Color Light Red Urine Appearance Cloudy H (Clear) Urine pH 5.5 (5.0-8.0) Ur Specific Pope 1.019 (1.001-1.035) Urine Protein 2+ H (Negative) Urine Glucose (UA) Negative (Negative) Urine Ketones Negative (Negative) Urine Blood Large H (Negative) Urine Nitrite Negative (Negative) Urine Bilirubin Negative (Negative) Urine Urobilinogen <2.0 (<2.0) mg/dL Ur Leukocyte Esterase Trace H (Negative) Urine RBC 75 H (0-5) /hpf Urine WBC 26 H (0-5) /hpf Ur Squamous Epith Cells 2 (0-4) /hpf Amorphous Sediment Occasional H (None) /hpf Hyaline Casts 2 (0-2) /lpf Urine Mucus Moderate H (None) /hpf Influenza Type A RNA (Not Detectd) Influenza Type B (PCR) (Not Detectd) - EKG Data -: EKG Interpreted by Me (and Dr. Elam ) EKG Comments: Ventricular rate 99, DC interval 192, QRS 82, QT/QTC 336/431. Normal sinus rhythm with sinus arrhythmia. Minimal voltage criteria for LVH may be normal variant. No concern for acute ischemia at this time. Disposition Clinical Impression: Sinusitis, Cough, Chest pain Narrative: possible pneumonia Disposition: ADMITTED IP TO THIS HOSP Condition: Serious Is patient prescribed a controlled substance at d/c from ED?: No Referrals: Jacques Robison DO [Primary Care Provider] - 1-2 days
[2020-04-29] MEDS: BENZONATATE 100 MG CAP PO SCH ×2 (15:40→23:04)
[2020-04-29] MEDS: methylPREDNISolone SOD SUCCI 40 MG/ML 1 ML VIAL IV SCH ×2 (15:40→23:04)
--- NOTE | 2020-04-29 21:08 | P.HPIM ---
History of Present Illness H&P Date: 04/29/20 Chief Complaint: Left-sided pneumonia, fever and chills, recurrent chest pain, hypoxia, UTI 75-year-old female one of Dr. Fontana patient with past medical history of anemia, GERD post have hernia surgery, chronic history of bladder problem who had mild hyperlipidemia as well who apparently developed to have low-grade temperature with mild symptom for the last 2 weeks consistent with fever chills increased headache mild dizziness cough productive duct phlegm with temperature of 102 at home ended up coming to see Dr. Robison today her exam was positive for left-sided pneumonia patient white blood cells mildly elevated urine was positive with atypical chest pain CK with troponin was negative EKG showed mild sinus tachycardia with sinus rhythm with no major abnormality. Patient was started on Rocephin and azithromycin Solu-Medrol along with DuoNeb and admitted to the hospital. Covera 19 test was performed results still pending as for influenza A and B were negative. Patient presented to the hospital and admitted in the time of Covid 19 pandemic. Review of Systems CONSTITUTIONAL: Well-developed no acute respiratory distress. EYES: No icterus sclerae, no conjunctivitis. EARS, NOSE, MOUTH, THROAT, and FACE: No sore throat, lymphadenopathy, carotid bruits or deformity. RESPIRATORY: Positive shortness of breath cough wheezes with mild chest pain with deep inspiration. CARDIOVASCULAR: Positive chest pain with mild palpitation with PND and orthopnea. GASTROINTESTINAL: No Abd pain, Nausea or vomiting, no Diarrhea or constipation, No GI Bleed, no distention or masses. GENITOURINARY: Negative for Hematuria or UTI, no kidney stones. INTEGUMENT/BREAST: Negative for any muscular injury with mild osteoarthritis.. HEMATOLOGIC/LYMPHATIC: Negative for bleed or purpura. MUSCULOSKELTAL: Negative for Myalgia or arthralgia. NEURLOGICAL: No LOC, Sz or syncope, blurred vision dizziness or abnormality.. BEHAVIORAL/PSYCH: Negative. ENDOCRINE: Negative. 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 Family history: Father age 60 from CAD, mother age 90 from old age, patient had 5 brothers 2 of them still living with no major medical problem 1:03 from kidney disease into from CAD also astute sister both from CVA: Patient had 3 children with no major active problem Past Medical History Past Medical History: GERD/Reflux, Osteoarthritis (OA) Additional Past Medical History / Comment(s): hiatal hernia, pleural effusions History of Any Multi-Drug Resistant Organisms: None Reported Past Surgical History: Bladder Surgery, Hysterectomy, Orthopedic Surgery Additional Past Surgical History / Comment(s): rt shoulder rotator cuff, thoracentesis/ c/t, RODERICK FUNDLOPLICATION -2014 Past Anesthesia/Blood Transfusion Reactions: No Reported Reaction Past Psychological History: No Psychological Hx Reported Smoking Status: Never smoker Past Alcohol Use History: None Reported Past Drug Use History: None Reported - Past Family History Brother(s) Additional Family Medical History / Comment(s): Patient is a total of 5 surgeries one brother has had heart surgery, one brother has history of CVA and otherwise she does not know their medical history. Sister(s) Additional Family Medical History / Comment(s): The patient has 2 sisters and one from a brain aneurysm Daughter(s) Additional Family Medical History / Comment(s): Patient has 2 sons and one daughter and one has history of thyroid and hypertension Mother Family Medical History: No Reported History Additional Family Medical History / Comment(s): at age 96 gave up after placement to [facility]. Father Family Medical History: Dementia Additional Family Medical History / Comment(s): heart problems Medications and Allergies Home Medications Medication Instructions Recorded Confirmed Type Ergocalciferol [Vitamin D2 50,000 unit PO GUTIERREZ 09/14/18 04/29/20 History (DRISDOL)] Ferrous Sulfate [Feosol] 325 mg PO DAILY 04/29/20 04/29/20 History Allergies Allergy/AdvReac Type Severity Reaction Status Date / Time nitrofurantoin AdvReac Chest Pain Verified 04/29/20 11:20 [From Macrobid] nitrofurantoin AdvReac Chest Pain Verified 04/29/20 11:20 macrocrystalline [From Macrobid] Physical Exam Vitals: Vital Signs Temp Pulse Resp BP Pulse Ox 04/29/20 15:04 98.1 F 86 16 132/66 98 04/29/20 13:40 98.4 F 80 16 131/68 98 04/29/20 12:03 81 14 141/75 98 04/29/20 10:38 97 18 141/75 97 04/29/20 10:14 18 04/29/20 09:46 98.9 F 100 20 122/76 97 Intake and Output 04/29/20 04/29/20 04/29/20 06:59 14:59 22:59 Other: Weight 56.245 kg General Appearance: Alert, cooperative, no distress, appears stated age. Neck HEENT: Supple, no lymphadenopathy, no thyroid enlargement, no carotid bruits. Lungs: Decreased breath some bilateral especially the left side positive for rhonchi mild crackles in the left base. Chest Wall: Mild tenderness to chest wall area, normal expansion with inspiration with slight decrease in the left compared to the right no deformity with mild signs symptom of pleurisy worsening of the left side.. Heart: Regular rate and rhythm, S1, S2 normal, no murmur, rub or gallop. Back: Symmetric, no curvature, ROM normal, no CVA tenderness. Abdomen: Soft, non-tender, bowel sounds active all four quadrants, no masses, no organomegaly. Extremities: Extremities normal, atraumatic, no cyanosis or edema. Pulses: 2+ and symmetric. Skin: Skin color, texture, tugor normal, no rashes or lesions. Neurologic: Alert oriented x3 cranial nerves II through XII intact, no motor deficit, no abnormal balance or gait. Results CBC & Chem 7: 04/29/20 10:23 04/29/20 10:23 Labs: Abnormal Lab Results - Last 24 Hours (Table) 04/29/20 04/29/20 04/29/20 Range/Units 10:23 10:23 10:31 WBC 12.9 H (3.8-10.6) k/uL Plt Count 476 H (150-450) k/uL Neutrophils # 9.7 H (1.3-7.7) k/uL Sodium 134 L (137-145) mmol/L Albumin 3.3 L (3.5-5.0) g/dL Urine Appearance Cloudy H (Clear) Urine Protein 2+ H (Negative) Urine Blood Large H (Negative) Ur Leukocyte Esterase Trace H (Negative) Urine RBC 75 H (0-5) /hpf Urine WBC 26 H (0-5) /hpf Amorphous Sediment Occasional H (None) /hpf Urine Mucus Moderate H (None) /hpf Thrombosis Risk Factor Assmnt - DVT/VTE Prophylaxis DVT/VTE Prophylaxis: Pharmacologic Prophylaxis ordered, Mechanical Prophylaxis ordered Assessment and Plan Assessment: 1 severe dyspnea and shortness of breath: Most likely left-sided pneumonia with the possibility of Covid 19: Patient is not hypoxic at this point finding of chest x-ray is not consistent no sign of lymphocytosis, also not of the markers positive this point awaiting for the result of the Covid 19 in the meanwhile Solu-Medrol along with Rocephin and azithromycin was used. 2 mild reactive airway/asthma: Patient will be on DuoNeb along with Solu-Medrol. 3 atypical chest pain: Mostly infection related EKG with troponin were negative patient does not have any sign and symptom of any coronary artery disease continued to have any exertional chest pain might require stress test as an outpatient. 4 urinary tract infection with possible sepsis: Patient is still symptomatic at this point with positive UA awaiting for culture the meanwhile Rocephin 1 g daily will be use. 5 severe GERD/hiatal hernia: Post Niesen fundoplication: Still continues PPI as needed. 6 GI prophylaxis: Will be on Pepcid 20 mg daily. 7 DVT prophylaxis: Patient will use heparin subcutaneous. CODE STATUS: Full code. Admit patient to the hospital for more than 2 night stay.
[2020-04-30 03:24] LABS: Cholesterol 206 mg/dL (<200); HDL Cholesterol 29 mg/dL (40-60); LDL Cholesterol,Calculated 129 mg/dL (0-99); Triglycerides 241 mg/dL (<150)
[2020-04-30 05:55] LABS: Glucose,Whole Blood 147 mg/dL (75-99)
[2020-04-30] MEDS: INSULIN ASPART (NovoLOG) 100 UNIT/ML VIAL SQ SCH ×4 (06:38→21:11)
[2020-04-30] MEDS: IPRATROPIUM-ALBUTEROL 3 ML NEB INHALATION PRN ×2 (08:03→20:00)
[2020-04-30] MEDS ORDERED: ASPIRIN 325 MG TAB PO SCH (09:00)
--- NOTE | 2020-04-30 10:44 | US ---
EXAMINATION TYPE: US kidneys/renal and bladder DATE OF EXAM: 04/30/2020 COMPARISON: NONE CLINICAL HISTORY: UTI, hematuria history. microscopic hematuria EXAM MEASUREMENTS: Right Kidney: 8.4 x 4.3 x 5.1 cm Left Kidney: 9.2 x 4.3 x 4.4 cm Right Kidney: decreased corticomedullary differentiation Left Kidney: cysts seen, largest within renal pelvis = 2.6cm Bladder: not fully distended Increased cortical echogenicity right kidney with cortical thinning. Poor cortical medullary differen tiation. No hydronephrosis. Bladder cannot be evaluated as it is collapsed. Several thin-walled cysts centrally in the left kidney do not appear to communicate to suggest hydronephrosis. IMPRESSION: Source of hematuria not identified. Further investigation with multiphase contrast-enhanc ed CT is advised if symptoms persist.
[2020-04-30] MEDS: methylPREDNISolone SOD SUCCI 40 MG/ML 1 ML VIAL IV SCH ×3 (10:45→23:33)
[2020-04-30] MEDS: BENZONATATE 100 MG CAP PO SCH ×3 (10:46→21:11)
[2020-04-30] MEDS: HEPARIN SODIUM,PORCINE 5,000 UNIT/ML 1 ML VIAL SQ SCH ×2 (10:47→21:11)
[2020-04-30] MEDS: FAMOTIDINE 20 MG TAB PO SCH (10:47)
[2020-04-30] MEDS: METOPROLOL SUCCINATE (ER) 25 MG TAB.ER.24H PO SCH (10:47)
[2020-04-30] MEDS: FERROUS SULFATE 325 MG TAB PO SCH (10:47)
--- NOTE | 2020-04-30 10:58 | P.CRDCN ---
History of Present Illness Consult date: 04/30/20 Consult reason: chest pain Chief complaint: Fever, chills, cough and headache History of present illness: This is 75-year-old female who presents to the hospital with symptoms of cough, chills, temperature of 102 at home, patient was also experiencing some pain below her breast area, that seemed to be aggravated by coughing. Cardiology consultation was requested because of the chest pain. Her chest x- ray on presentation here showed left basilar atelectasis, EKG showed normal sinus rhythm with LVH changes and echo was performed in 2018 which revealed a normal ejection fraction. Patient also had a regular stress test performed at that time which was normal. Her blood pressure 128/70 with a heart rate of 7090% on room air and she is afebrile. White blood cell count 12.9, hemoglobin 13.6, platelet count 476. Sodium 134, potassium 5.1, BUN 16, creatinine 0.8. Lactic acid 1.4 troponins negative 3. Cholesterol 206, triglycerides 246, LDL 129, HDL 29. Influenza A and B were negative, rotavirus testing negative. We will start the patient on metoprolol sesame 25 mg daily as well as Lipitor and baby aspirin. We will obtain an echocardiogram with Doppler study. Patient has been advised that she may be discharged from cardiology standpoint. She will have an appointment with Dr. Lorenzo in the office in one week, and outpatient stress echo will be performed once the patient is stable from a lung perspective. Past Medical History Past Medical History: GERD/Reflux, Osteoarthritis (OA) Additional Past Medical History / Comment(s): hiatal hernia, pleural effusions History of Any Multi-Drug Resistant Organisms: None Reported Past Surgical History: Bladder Surgery, Hysterectomy, Orthopedic Surgery Additional Past Surgical History / Comment(s): rt shoulder rotator cuff, thoracentesis/ c/t, RODERICK FUNDLOPLICATION -2014 Past Anesthesia/Blood Transfusion Reactions: No Reported Reaction Past Psychological History: No Psychological Hx Reported Smoking Status: Never smoker Past Alcohol Use History: None Reported Past Drug Use History: None Reported - Past Family History Brother(s) Additional Family Medical History / Comment(s): Patient is a total of 5 surgeries one brother has had heart surgery, one brother has history of CVA and otherwise she does not know their medical history. Sister(s) Additional Family Medical History / Comment(s): The patient has 2 sisters and one from a brain aneurysm Daughter(s) Additional Family Medical History / Comment(s): Patient has 2 sons and one daughter and one has history of thyroid and hypertension Mother Family Medical History: No Reported History Additional Family Medical History / Comment(s): at age 89 gave up after placement to [facility]. Father Family Medical History: Dementia Additional Family Medical History / Comment(s): heart problems Medications and Allergies Home Medications Medication Instructions Recorded Confirmed Type Ergocalciferol [Vitamin D2 50,000 unit PO GUTIERREZ 09/14/18 04/29/20 History (DRISDOL)] Ferrous Sulfate [Feosol] 325 mg PO DAILY 04/29/20 04/29/20 History Allergies Allergy/AdvReac Type Severity Reaction Status Date / Time nitrofurantoin AdvReac Chest Pain Verified 04/29/20 11:20 [From Macrobid] nitrofurantoin AdvReac Chest Pain Verified 04/29/20 11:20 macrocrystalline [From Macrobid] Physical Exam Vitals: Vital Signs Temp Pulse Pulse Resp BP BP Pulse Ox 04/30/20 08:10 76 04/30/20 08:05 72 04/30/20 04:00 97.4 F L 82 20 128/70 98 04/29/20 23:44 69 18 04/29/20 23:42 69 18 142/71 96 04/29/20 20:00 98.4 F 83 20 117/56 97 04/29/20 15:20 97.9 F 81 18 143/67 98 04/29/20 15:04 98.1 F 86 16 132/66 98 04/29/20 13:40 98.4 F 80 16 131/68 98 04/29/20 12:03 81 14 141/75 98 Intake and Output 04/29/20 04/30/20 04/30/20 22:59 06:59 14:59 Other: Voiding Method Toilet Toilet # Voids 1 1 1 Weight 56.245 kg 55.2 kg PHYSICAL EXAMINATION: GENERAL: 75-year-old female in no acute distress at the time of my examination HEENT: Head is atraumatic, normocephalic. Pupils equal, round. Sclera anicteric. Conjunctiva are clear. Mucous membranes of the mouth are moist. Neck is supple. There is no elevated jugular venous pressure. No carotid bruit is heard. HEART EXAMINATION: Heart S1, S2 normal. No murmur or gallop heard. CHEST EXAMINATION: Lungs reveal some scattered rhonchi ABDOMEN: Soft, nontender. Bowel sounds are heard. No organomegaly noted. EXTREMITIES: 2+ peripheral pulses with no evidence of peripheral edema and no calf tenderness noted. NEUROLOGIC patient is awake, alert and oriented 3 . . Results 04/29/20 10:04/29/20 10:23 Cardiac Enzymes 04/29/20 04/29/20 04/29/20 Range/Units 10: 14:20 17:14 Troponin I <0.012 <0.012 <0.012 (0.000-0.034) ng/mL Lipids 04/29/20 Range/Units 10: Triglycerides 241 H (<150) mg/dL Cholesterol 206 H (<200) mg/dL HDL Cholesterol 29 L (40-60) mg/dL Current Medications Generic Name Dose Route Start Last Admin Trade Name Freq PRN Reason Stop Dose Admin Albuterol/Ipratropium 3 ml 04/29/20 15:06 04/30/20 08:03 Ipratropium-Albuterol 3 Ml Neb INHALATION 3 ml RT-QID PRN Administration Shortness Of Breath Or Wheezing Aspirin 81 mg 05/01/20 09:00 Aspirin 81 Mg PO DAILY KHLOE Atorvastatin Calcium 40 mg 04/30/20 21:00 Atorvastatin 40 Mg Tab PO HS KHLOE Benzonatate 100 mg 04/29/20 16:00 04/30/20 10:46 Benzonatate 100 Mg Cap PO 100 mg TID KHLOE Administration Ergocalciferol 50,000 unit 05/03/20 09:00 Ergocalciferol 50,000 Unit Cap PO GUTIERREZ KHLOE Famotidine 20 mg 04/30/20 09:00 04/30/20 10:47 Famotidine 20 Mg Tab PO 20 mg DAILY KHLOE Administration Ferrous Sulfate 325 mg 04/30/20 09:00 04/30/20 10:47 Ferrous Sulfate 325 Mg Tab PO 325 mg DAILY KHLOE Administration Heparin Sodium (Porcine) 5,000 unit 04/30/20 09:00 04/30/20 10:47 Heparin Sodium,Porcine 5,000 Unit/Ml 1 Ml Vial SQ 5,000 unit Q12HR KHLOE Administration Insulin Aspart 0 unit 04/30/20 07:30 04/30/20 06:38 Insulin Aspart (Novolog) 100 Unit/Ml Vial SQ Not Given ACHS [facility] Protocol Methylprednisolone Sodium Succinate 40 mg 04/29/20 16:00 04/30/20 10:45 Methylprednisolone Sod Succi 40 Mg/Ml 1 Ml Vial IV 40 mg Q8HR KHLOE Administration Metoprolol Succinate 25 mg 04/30/20 09:45 04/30/20 10:47 Metoprolol Succinate (Er) 25 Mg Tab.Er.24h PO 25 mg DAILY KHLOE Administration Nitroglycerin 0.4 mg 04/29/20 12:15 Nitroglycerin Sl Tabs 0.4 Mg Tab SUBLINGUAL Q5M PRN Chest Pain Intake and Output 04/29/20 04/30/20 04/30/20 22:59 06:59 14:59 Other: Voiding Method Toilet Toilet # Voids 1 1 1 Weight 56.245 kg 55.2 kg 04/29/20 10:23 04/29/20 10:23 EKG Interpretations (text) EKG shows normal sinus rhythm with LVH strain pattern Assessment and Plan Plan: Assessment and plan #1 symptoms of fever, chills, productive cough, possible tracheobronchitis. Influenza A and B were negative, Covid testing negative #2 atypical chest pain, pleuritic, musculoskeletal in nature. Troponins negative 3. EKG shows normal sinus rhythm with no acute changes #3 GERD #4 hyperlipidemia Plan We will start the patient on metoprolol sesame 25 mg daily, as well as Lipitor, baby aspirin, patient was seen in consultation today by Dr. Stefania Lorenzo, from his perspective the patient may be discharged home to follow-up with him in the [facility] in one week's time. He will also perform a stress echocardiographic study as an outpatient once her lungs have stabilized. DNP note has been reviewed, I agree with a documented findings and plan of care. Patient was seen and examined.
[2020-04-30 12:04] LABS: Glucose,Whole Blood 132 mg/dL (75-99)
--- NOTE | 2020-04-30 12:31 | ECHOF ---
Referral Reason:chest pain MEASUREMENTS -------- HEIGHT: 157.5 cm WEIGHT: 54.9 kg BP: 128/70 RVIDd: 2.8 cm (< 3.3) IVSd: 0.9 cm (0.6 - 1.1) LVIDd: 4.1 cm (3.9 - 5.3) LVPWd: 1.0 cm (0.6 - 1.1) IVSs: 1.3 cm LVIDs: 2.5 cm LVPWs: 1.4 cm LA Diam: 2.8 cm (2.7 - 3.8) LAESV Index (A-L): 24.42 ml/m Ao Diam: 3.0 cm (2.0 - 3.7) AV Cusp: 2.1 cm (1.5 - 2.6) MV EXCURSION: 18.894 mm (> 18.000) MV EF SLOPE: 42 mm/s (70 - 150) EPSS: 0.5 cm MV E Yandel: 0.75 m/s MV DecT: 200 ms MV A Yandel: 1.00 m/s MV E/A Ratio: 0.75 RAP: 5.00 mmHg RVSP: 25.41 mmHg FINDINGS -------- Sinus rhythm. This was a technically good study. The left ventricular size is normal. Left ventricular wall thickness is normal. Overall left vent ricular systolic function is normal with, an EF between 55 - 60 %. The right ventricle is normal in size. Normal LA size by volume 22+/-6 ml/m2. The right atrium is normal in size. Lipomatous Hypertrophy of the atrial septum is present The aortic valve is trileaflet and appears structurally normal. Mild mitral regurgitation is present. Mild tricuspid regurgitation present. Trace/mild (physiologic) pulmonic regurgitation. The aortic root size is normal. Normal inferior vena cava with normal inspiratory collapse consistent with estimated right atrial pre ssure of 5 mmHg. There is no pericardial effusion. CONCLUSIONS -------- 1. The left ventricular size is normal. 2. Left ventricular wall thickness is normal. 3. Overall left ventricular systolic function is normal with, an EF between 55 - 60 %. 4. Lipomatous Hypertrophy of the atrial septum is present 5. Mild mitral regurgitation is present. 6. Mild tricuspid regurgitation present. 7. Trace/mild (physiologic) pulmonic regurgitation. 8. There is no pericardial effusion. HUMAN RESOURCES SUPPORT SPECIALIST: Gloria Mccarty RDCS
--- NOTE | 2020-04-30 14:34 | P.PN ---
Subjective Progress Note Date: 04/30/20 HISTORY OF PRESENT ILLNESS 75-year-old female one of Dr. Fontana patient with past medical history of anemia, GERD post have hernia surgery, chronic history of bladder problem who had mild hyperlipidemia as well who apparently developed to have low-grade temperature with mild symptom for the last 2 weeks consistent with fever chills increased headache mild dizziness cough productive duct phlegm with temperature of 102 at home ended up coming to see Dr. Robison today her exam was positive for left-sided pneumonia patient white blood cells mildly elevated urine was positive with atypical chest pain CK with troponin was negative EKG showed mild sinus tachycardia with sinus rhythm with no major abnormality. Patient was started on Rocephin and azithromycin Solu-Medrol along with DuoNeb and admitted to the hospital. Covera 19 test was performed results still pending as for influenza A and B were negative. Patient presented to the hospital and admitted in the time of Covid 19 pandemic. 04/30: Patient denies having any chest pain. She states during the night she had sweats and her cough seems to be worse today than when she came in. She has been seen by cardiology with plan for echocardiogram. Troponins have been negative on 3 draws. Cholesterol 206, triglycerides 246, LDL 129, HDL 29. Influenza testing and COVID-19 testing is negative. Urine culture has been finalized with no growth. Blood culture no growth at 24 hours. Patient is currently on a Zithromax in and ceftriaxone as well as DuoNeb treatments and IV Solu-Medrol at 40 mg every 8 hours. Echocardiogram reveals EF of 55-60%, mild mitral regurgitation, mild tricuspid regurgitation. Patient will be transferred to the [facility] floor without telemetry. Anticipate discharge home tomorrow. HISTORY OF PRESENT ILLNESS CONSTITUTIONAL: Well-developed no acute respiratory distress. Denies fever. EYES: No icterus sclerae, no conjunctivitis. EARS, NOSE, MOUTH, THROAT, and FACE: No sore throat, lymphadenopathy, carotid bruits or deformity. RESPIRATORY: Positive shortness of breath reports cough wheezes with mild chest pain with deep inspiration. CARDIOVASCULAR: Positive chest pain with mild palpitation with PND and orthopnea. GASTROINTESTINAL: No Abd pain, Nausea or vomiting, no Diarrhea or constipation, No GI Bleed, no distention or masses. GENITOURINARY: Negative for Hematuria or UTI, no kidney stones. INTEGUMENT/BREAST: Negative for any muscular injury with mild osteoarthritis.. HEMATOLOGIC/LYMPHATIC: Negative for bleed or purpura. MUSCULOSKELTAL: Negative for Myalgia or arthralgia. NEURLOGICAL: No LOC, Sz or syncope, blurred vision dizziness or abnormality.. BEHAVIORAL/PSYCH: Negative. ENDOCRINE: Negative. PHYSICAL EXAMINATION General Appearance: Alert, cooperative, no distress, appears stated age. Patient is resting in bed and appears to be comfortable. Neck HEENT: Supple, no lymphadenopathy, no thyroid enlargement, no carotid bruits. Lungs: Decreased breath some bilateral especially the left side positive for rhonchi mild crackles in the left base. Chest Wall: Mild tenderness to chest wall area, normal expansion with inspiration with slight decrease in the left compared to the right no deformity with mild signs symptom of pleurisy worsening of the left side.. Heart: Regular rate and rhythm, S1, S2 normal, no murmur, rub or gallop. Back: Symmetric, no curvature, ROM normal, no CVA tenderness. Abdomen: Soft, non-tender, bowel sounds active all four quadrants, no masses, no organomegaly. Extremities: Extremities normal, atraumatic, no cyanosis or edema. Pulses: 2+ and symmetric. Skin: Skin color, texture, tugor normal, no rashes or lesions. Neurologic: Alert oriented x3 cranial nerves II through XII intact, no motor deficit, no abnormal balance or gait. ASSESSMENT AND PLAN 1 severe dyspnea and shortness of breath: Most likely left-sided pneumonia with COVID-19 ruled out. Continue Solu-Medrol along with Rocephin and azithromycin was used. 2 mild reactive airway/asthma: Patient will be on DuoNeb along with Solu-Medrol. 3 atypical chest pain: Mostly infection related EKG with troponin were negative patient does not have any sign and symptom of any coronary artery disease continued to have any exertional chest pain might require stress test as an outpatient. echocardiogram as above. Cardiology consult appreciated. 4 urinary tract infection with possible sepsis. Urine culture finalized with no growth. Continue Rocephin. 5 severe GERD/hiatal hernia: Post Niesen fundoplication: Still continues PPI as needed. 6 GI prophylaxis: Will be on Pepcid 20 mg daily. 7 DVT prophylaxis: Patient will use heparin subcutaneous. CODE STATUS: Full code. Discharge plan: Home on [place]. Impression and plan of care have been directed as dictated by the signing physician. Rupinder Dixon nurse practitioner acting as scribe for signing physician. Objective - Vital Signs Vital signs: Vital Signs Temp 97.7 F 04/30/20 11:35 Pulse 87 04/30/20 12:00 Resp 16 04/30/20 12:00 BP 133/68 04/30/20 11:35 Pulse Ox 97 04/30/20 11:35 Intake & Output 04/29/20 04/30/20 04/30/20 18:59 06:59 18:59 Weight 56.245 kg 55.2 kg Other: Voiding Method Toilet Toilet # Voids 1 1 1 - Labs CBC & Chem 7: 04/29/20 10:23 04/29/20 10:23 Labs: Abnormal Lab Results - Last 24 Hours (Table) 04/29/20 04/30/20 04/30/20 Range/Units 10:23 05:48 12:03 POC Glucose (mg/dL) 147 H 132 H (75-99) mg/dL Triglycerides 241 H (<150) mg/dL Cholesterol 206 H (<200) mg/dL LDL Cholesterol, Calc 129 H (0-99) mg/dL HDL Cholesterol 29 L (40-60) mg/dL Microbiology - Last 24 Hours (Table) 04/29/20 10:31 Urine Culture - Final Urine,Voided 04/29/20 10:30 Blood Culture - Preliminary Blood No Growth after 24 hours
[2020-04-30] MEDS ORDERED: ACETAMINOPHEN TAB 500 MG TAB PO PRN (16:38)
[2020-04-30 16:42] LABS: Glucose,Whole Blood 123 mg/dL (75-99)
[2020-04-30] MEDS: AZITHROMYCIN 500 MG TAB PO SCH (17:04)
[2020-04-30 20:19] LABS: Glucose,Whole Blood 171 mg/dL (75-99)
[2020-04-30] MEDS ORDERED: ATORVASTATIN 40 MG TAB PO SCH (21:00)
[2020-05-01 06:26] LABS: Glucose,Whole Blood 148 mg/dL (75-99)
[2020-05-01] MEDS: INSULIN ASPART (NovoLOG) 100 UNIT/ML VIAL SQ SCH (06:35)
[2020-05-01] MEDS ORDERED: ASPIRIN 81 MG PO SCH (09:00)
--- NOTE | 2020-05-01 09:50 | P.DS ---
Providers Date of admission: 04/29/20 12:17 Expected date of discharge: 05/01/20 Attending physician: Quinton Magana Consults: 04/29/20 12:15 Consult Physician Urgent Consulting Provider: Andrea Gaston Consult Reason/Comments: chest pain, fever, cough Do you want consulting provider notified?: Yes [facility] care [facility]: [facility]: HISTORY OF PRESENT ILLNESS 75-year-old female one of Dr. Fontana patient with past medical history of anemia, GERD post have hernia surgery, chronic history of bladder problem who had mild hyperlipidemia as well who apparently developed to have low-grade temperature with mild symptom for the last 2 weeks consistent with fever chills increased headache mild dizziness cough productive duct phlegm with temperature of 102 at home ended up coming to see Dr. Robison today her exam was positive for left-sided pneumonia patient white blood cells mildly elevated urine was positive with atypical chest pain CK with troponin was negative EKG showed mild sinus tachycardia with sinus rhythm with no major abnormality. Patient was started on Rocephin and azithromycin Solu-Medrol along with DuoNeb and admitted to the hospital. Covera 19 test was performed results still pending as for influenza A and B were negative. Patient presented to the hospital and admitted in the time of Covid 19 pandemic. 04/30: Patient denies having any chest pain. She states during the night she had sweats and her cough seems to be worse today than when she came in. She has been seen by cardiology with plan for echocardiogram. Troponins have been negative on 3 draws. Cholesterol 206, triglycerides 246, LDL 129, HDL 29. Influenza testing and COVID-19 testing is negative. Urine culture has been finalized with no growth. Blood culture no growth at 24 hours. Patient is currently on a Zithromax in and ceftriaxone as well as DuoNeb treatments and IV Solu-Medrol at 40 mg every 8 hours. Echocardiogram reveals EF of 55-60%, mild mitral regurgitation, mild tricuspid regurgitation. Patient will be transferred to the MedSur floor without telemetry. Anticipate discharge home tomorrow. 05/01: Patient denies any new complaints today. Her breathing status she states is much better. She has been afebrile, heart rate 67, blood pressure 140/63, pulse ox 95% on room air. WBC 25.6. Sodium 133, potassium 4.6, BUN 41 creatinine 0.97. Blood sugars running between 148 and 171. Cardiology has cleared the patient for discharge. Patient will be discharged home today in stable condition. ASSESSMENT AND PLAN 1 severe dyspnea and shortness of breath: Most likely left-sided pneumonia with COVID-19 ruled out. 2 mild reactive airway. 3 atypical chest pain: Mostly infection related 4 urinary tract infection 5 severe GERD/hiatal hernia: Post Niesen fundoplication Discharge plan: Home Impression and plan of care have been directed as dictated by the signing physician. Rupinder Dixon nurse practitioner acting as scribe for signing physician. Patient Condition at Discharge: Good Plan - Discharge Summary Discharge Rx Participant: Yes New Discharge Prescriptions: New Aspirin 81 mg PO DAILY chew Atorvastatin [Lipitor] 40 mg PO HS #30 tab Famotidine [Pepcid] 20 mg PO DAILY #0 tab predniSONE 0 mg PO DIRECTED #30 tab Benzonatate [Tessalon Perles] 100 mg PO TID #60 cap Metoprolol Succinate (ER) [Toprol XL] 25 mg PO DAILY #30 tab.er.24h Azithromycin [Zithromax] 500 mg PO DAILY #5 tab Continue Ergocalciferol [Vitamin D2 (DRISDOL)] 50,000 unit PO GUTIERREZ Ferrous Sulfate [Feosol] 325 mg PO DAILY Discharge Medication List Ergocalciferol [Vitamin D2 (DRISDOL)] 50,000 unit PO GUTIERREZ 09/14/18 [History] Ferrous Sulfate [Feosol] 325 mg PO DAILY 04/29/20 [History] Aspirin 81 mg PO DAILY chew 05/01/20 [Rx] Atorvastatin [Lipitor] 40 mg PO HS #30 tab 05/01/20 [Rx] Azithromycin [Zithromax] 500 mg PO DAILY #5 tab 05/01/20 [Rx] Benzonatate [Tessalon Perles] 100 mg PO TID #60 cap 05/01/20 [Rx] Famotidine [Pepcid] 20 mg PO DAILY #0 tab 05/01/20 [Rx] Metoprolol Succinate (ER) [Toprol XL] 25 mg PO DAILY #30 tab.er.24h 05/01/20 [Rx] predniSONE 0 mg PO DIRECTED #30 tab 05/01/20 [Rx] Follow up Appointment(s)/Referral(s): [place],Jacques, DO [Primary Care Provider] - 1 Week (Called the office to schedule the follow-up appointment, there as not an appointment available. Verified the patients contact number with the office and the office will call to schedule a follow-up appointment with the patient.) Patient Instructions/Handouts: Chest Pain (DC) Discharge Disposition: HOME SELF-CARE
[2020-05-01] MEDS: BENZONATATE 100 MG CAP PO SCH ×2 (09:54→09:55)
[2020-05-01] MEDS: FAMOTIDINE 20 MG TAB PO SCH (09:54)
[2020-05-01] MEDS: METOPROLOL SUCCINATE (ER) 25 MG TAB.ER.24H PO SCH (09:55)
[2020-05-01] MEDS: FERROUS SULFATE 325 MG TAB PO SCH (09:55)
[2020-05-01] MEDS: AZITHROMYCIN 500 MG TAB PO SCH (09:55)
[2020-05-01] MEDS: HEPARIN SODIUM,PORCINE 5,000 UNIT/ML 1 ML VIAL SQ SCH (09:55)
[2020-05-01] MEDS: methylPREDNISolone SOD SUCCI 40 MG/ML 1 ML VIAL IV SCH (09:55)
[2020-05-01 10:15] VITALS: BP 140/63; PULSE 67; RESP 18; TEMP 97.7
--- NOTE | 2020-05-01 10:15 | PN ---
PROGRESS NOTE This is a 75-year-old lady with atypical chest pain and UTI, who is doing well. No chest pain, troponins are normal. EKG is unremarkable. Echo is unremarkable. Vitals are stable, no JVD, S1, S2 heard normally. Lungs are clear. Abdomen and lower extremity exam is unchanged. I am recommending that she can be discharged and I will perform workup as an outpatient for her. She had a previous stress test about 2 years ago which was unremarkable. She can be sent to the medical floor and continue antibiotics as advised by the hospitalist. From a cardiac standpoint, no aggressive intervention is necessary. Her blood pressure control is good and echo revealed preserved systolic function without significant valvular disease. I will see her as needed. MMODL / IJN: [id number] /
[2020-05-01 11:00] LABS: HCT 36.8 % (34.0-46.0); HGB 11.8 gm/dL (11.4-16.0); MCH 29.5 pg (25.0-35.0); MCHC 32.1 g/dL (31.0-37.0); Mean Platelet Volume 7.3; Platelet Count 435 k/uL (150-450); RDW 13.2 % (11.5-15.5); WBC 25.6 k/uL (3.8-10.6)
[2020-05-01 11:08] LABS: Calcium 8.9 mg/dL (8.4-10.2); Potassium 4.6 mmol/L (3.5-5.1)
[2020-05-03] MEDS ORDERED: ERGOCALCIFEROL 50,000 UNIT CAP PO SCH (09:00)
--- NOTE | 2020-05-05 00:20 | CDI ---
Documentation Clarification Form Date: 05/05/2020 From: Malachi Lorenzo Phone: If you have a question about this query, please contact Ivory Castellanos, Lace Finisher at [phone] between 8am and 5pm. Admit Date: 04/29/2020 Discharge Date: 05/01/2020 Patient Name: Yoly Yao Visit Number: [id number] ATTENTION: The Clinical Documentation Specialists (CDI) and [facility] Coding Staff appreciate your assistance in clarifying documentation. Please respond to the clarification below the line at the bottom and electronically sign. The CDI & [facility] Coding staff will review the response and follow-up if needed. Please note: Queries are made part of the Legal Health Record. If you have any questions, please contact the author of this message via ITS. Dear Chino Saleh MD., The patient presented with the severe dyspnea and shortness of breath: Most likely left-sided pneumonia. History/Risk Factors: Osteoarthritis, Hyperlipidemia, UTI WBC : 12.9H Lactic acid: 1.4 Blood cultures: NG Vitals signs on admission: Temperature 98.9 F Pulse Rate 100 97 Respiratory 20 18 18 Rate Blood Pressure 122/76 141/75 O2 Sat by Pulse 97 97 Oximetry Other Clinical Indicators: Per H&P report "urinary tract infection with possible sepsis: Patient is still symptomatic at this point with positive UA awaiting for culture the meanwhile Rocephin 1 g daily will be use". 04/30 progress note also mentioned as possible sepsis. Per DS urinary tract infection alone documented. In your professional opinion, please clarify if these findings signify one of the following conditions, xx Sepsis ruled out Sepsis Other, please specify Unable to determine MTDD
== END 2020-05-01 11:53 | disposition home or self-care (01) | DRG 194 ==
LOC: EC 09:29 → 3SCARD 12:17
PROVIDERS: ADMIT Internal Medicine Geriatric Medicine; ATTEND Internal Medicine Geriatric Medicine
DX: J18.9 Pneumonia, unspecified organism (principal); N39.0 Urinary tract infection, site not specified; J98.11 Atelectasis; Z20.828 Contact with and (suspected) exposure to other viral communicable diseases; K21.9 Gastro-esophageal reflux disease without esophagitis; M19.90 Unspecified osteoarthritis, unspecified site; E78.5 Hyperlipidemia, unspecified; J45.909 Unspecified asthma, uncomplicated; R09.02 Hypoxemia; K44.9 Diaphragmatic hernia without obstruction or gangrene; Z90.710 Acquired absence of both cervix and uterus; Z88.8 Allergy status to other drugs, medicaments and biological substances; Z98.890 Other specified postprocedural states; Z82.49 Family history of ischemic heart disease and other diseases of the circulatory system; Z81.8 Family history of other mental and behavioral disorders; Z82.3 Family history of stroke
CPT/HCPCS: 36415; 70450; 71046; 76770; 80048; 80053; 80061; 81001; 83605; 83690; 84484; 85025; 85027; 87040; 87086; 87502; 93005; 93306; 94640; 96361; 96365; 96367; 99285

== ENCOUNTER → 2020-06-30 | Outpatient (CLI) | payer MEDICARE, BC | END | disposition home or self-care (01) | LOC: LABWHC1 13:57 | PROVIDERS: ATTEND Family Medicine | DX: Z20.828 Contact with and (suspected) exposure to other viral communicable diseases (principal) | CPT/HCPCS: U0003; C9803 ==

== ENCOUNTER → 2020-12-04 | Outpatient (CLI) | payer MEDICARE, BC ==
--- NOTE | 2020-12-09 12:52 | MM ---
Reason for exam: screening (asymptomatic). Last mammogram was performed 1 year and 6 months ago. History: Patient is postmenopausal. Benign MG stereo VAD BX LT of the left breast, March 18, 2015. Physical Findings: A clinical breast exam by your physician is recommended on an annual basis and results should be correlated with mammographic findings. MG 3D Screening Mammo W/Cad Bilateral CC and MLO view(s) were taken. Prior study comparison: June 13, 2019, bilateral MG 3d screening mammo w/cad. April 18, 2018, bilateral MG 3d screening mammo w/cad. There are scattered fibroglandular densities. Previous mammotome biopsy in the left breast. ASSESSMENT: Benign, BI-RAD 2 RECOMMENDATION: Routine screening mammogram of both breasts in 1 year.
== END | disposition home or self-care (01) ==
LOC: RADMAMWWP 13:12
PROVIDERS: ATTEND Family Medicine
DX: Z12.31 Encounter for screening mammogram for malignant neoplasm of breast (principal); Z78.0 Asymptomatic menopausal state
CPT/HCPCS: 77063; 77067

== ENCOUNTER → 2021-07-28 | Outpatient (CLI) | payer MEDICARE, BC ==
--- NOTE | 2021-07-28 13:59 | XR ---
EXAMINATION TYPE: XR chest 2V DATE OF EXAM: 07/28/2021 COMPARISON: 04/29/2020 INDICATION: Bronchitis, cough x2 months TECHNIQUE: Single frontal view of the chest is obtained. FINDINGS: The heart size is normal. The pulmonary vasculature is normal. The lungs are clear. Scoliosis is present. IMPRESSION: 1. No acute pulmonary process.
== END | disposition home or self-care (01) ==
LOC: RADXRWHC 13:09
PROVIDERS: ATTEND Family Medicine
DX: J18.9 Pneumonia, unspecified organism (principal); J40 Bronchitis, not specified as acute or chronic
CPT/HCPCS: 71046

== ENCOUNTER → 2021-09-17 | Outpatient (CLI) | payer MEDICARE, BC ==
--- NOTE | 2021-09-17 11:09 | XR ---
EXAMINATION TYPE: XR chest 2V DATE OF EXAM: 09/17/2021 COMPARISON: 07/28/2021 HISTORY: Shortness of breath TECHNIQUE: Frontal and lateral views of the chest are obtained. FINDINGS: Scattered senescent parenchymal changes noted. Hyperinflation compatible with COPD. No evidence for infiltrate. No evidence for atelectasis. Heart size is stable. Mediastinal structures are stable and grossly unremarkable. No evidence for hilar prominence. Degenerative changes dorsal spine. IMPRESSION: 1. No evidence for acute pulmonary disease.
== END | disposition home or self-care (01) ==
LOC: RADXRMAIN 10:48
PROVIDERS: ATTEND Family Medicine
DX: J18.9 Pneumonia, unspecified organism (principal); R05.9 Cough, unspecified
CPT/HCPCS: 71046

== ENCOUNTER → 2021-12-21 | Outpatient (CLI) | payer MEDICARE, BC ==
--- NOTE | 2021-12-22 12:01 | MM ---
Reason for Exam: Screening (asymptomatic). Last mammogram was performed 1 year(s) and 1 month(s) ago. Patient History: Menarche at age 13. First Full-Term at age 21. Hysterectomy at age 42. Postmenopausal. 03/18/2015, Benign Core Biopsy on the left side. Risk Values: Citlali 5 year model risk: 1.9%. NCI Lifetime model risk: 4.0%. Prior Study Comparison: 04/18/2018 Bilateral Screening Mammogram, [facility]. 06/13/2019 Bilateral Screening Mammogram, [facility]. 12/04/2020 Bilateral Screening Mammogram, [facility]. Tissue Density: There are scattered fibroglandular densities. Findings: Analyzed By CAD. Mammotome biopsy clip left breast is redemonstrated. Benign-appearing vascular calcification in the right breast redemonstrated. There is no suspicious group of microcalcifications or new suspicious mass in either breast. Overall Assessment: Benign, BI-RAD 2 Management: Screening Mammogram of both breasts in 1 year. A clinical breast exam by your physician is recommended on an annual basis and results should be correlated with mammographic findings. Electronically signed and approved by: Adam Avila M.D.
== END | disposition home or self-care (01) ==
LOC: RADMAMWWP 10:40
PROVIDERS: ATTEND Family Medicine
DX: Z12.31 Encounter for screening mammogram for malignant neoplasm of breast (principal)
CPT/HCPCS: 77063; 77067

== ENCOUNTER → 2022-03-28 | Outpatient (CLI) | payer MEDICARE, BC ==
--- NOTE | 2022-03-28 19:05 | XR ---
EXAMINATION TYPE: XR hand complete bilateral DATE OF EXAM: 03/28/2022 COMPARISON: NONE HISTORY: 77-year-old female S69.92XA S69.92XA Trauma hands TECHNIQUE: 3 views each side FINDINGS: Moderate to severe degenerative joint space narrowing first CMC joint right hand. Mild dege nerative change left first CMC joint. Small corticated ossific density adjacent to the left ulnar sty loid process. Osteopenia. No marginal erosions. There is degenerative spurring left first DIP joint. There is a bone fragment measuring 3 mm along the dorsal aspect of the fifth PIP joint on the left. O n the right, there is moderate degenerative spurring at the second through fifth DIP joints. Addition al moderate degenerative change third and fourth PIP joints on the right. No marginal erosions seen. IMPRESSION: 1. Left: A 3 mm bone fragment along the dorsal aspect of the fifth MP joint. Correlate for irish cavazos here to exclude an acute avulsion fracture mediated by the extensor tendon. Mild to moderate O A at the base of the thumb. Scattered moderate OA particularly second and third DIP joints. 2. Right: Moderate to severe OA base of the thumb and moderate scattered throughout the DIP joints an d second MCP joint. No acute osseous abnormality seen.
== END | disposition home or self-care (01) ==
LOC: RADXRMAIN 15:10
PROVIDERS: ATTEND Family Medicine
DX: S69.92XA Unspecified injury of left wrist, hand and finger(s), initial encounter (principal); S69.91XA Unspecified injury of right wrist, hand and finger(s), initial encounter; M19.09 Primary osteoarthritis, other specified site; X58.XXXA Exposure to other specified factors, initial encounter

== ENCOUNTER → 2024-10-18 | Outpatient (CLI) | payer MEDICARE, BC ==
--- NOTE | 2024-10-18 16:14 | MM ---
Reason for Exam: Screening (asymptomatic). Last mammogram was performed 1 year(s) and 6 month(s) ago. Patient History: Menarche at age 13. First Full-Term at age 21. Hysterectomy at age 42. Postmenopausal. 03/18/2015, Benign Core Biopsy on the left side. Risk Values: Citlali 5 year model risk: 1.8%. NCI Lifetime model risk: 3.3%. Prior Study Comparison: 04/18/2018 Bilateral Screening Mammogram, [facility]. 06/13/2019 Bilateral Screening Mammogram, [facility]. 12/04/2020 Bilateral Screening Mammogram, [facility]. 12/21/2021 Bilateral MG 3D screening mammo w/cad, [facility]. 04/21/2023 Bilateral MG 3D screening mammo w/cad, [facility]. Tissue Density: There are scattered areas of fibroglandular density. Findings: Analyzed By CAD. Microclip left breast from prior biopsy. Chronic nodularity posterior upper outer quadrant left breast. There is no suspicious group of microcalcifications or new suspicious mass in either breast. Overall Assessment: Benign, BI-RAD 2 Management: Screening Mammogram of both breasts in 1 year. Patient should continue monthly self-breast exams. A clinical breast exam by your physician is recommended on an annual basis. This exam should not preclude additional follow-up of suspicious palpable abnormalities. Note on Citlali scores and lifetime risk: 1. A Citlali score greater than 3% is considered moderate risk. If this is the case, consider specialist referral to assess eligibility for a risk reducing agent. 2. If overall lifetime risk for the development of breast cancer is 20% or higher, the patient may qualify for future screening with alternating mammogram and breast MRI. [facility], , 10/18/2024 4:11 PM. Electronically signed and approved by: iNca Gonzáles M.D. Radiologist
== END | disposition home or self-care (01) ==
LOC: RADMAMWWP 09:55
PROVIDERS: ATTEND Family Medicine
DX: Z12.31 Encounter for screening mammogram for malignant neoplasm of breast (principal); R92.323 Mammographic fibroglandular density, bilateral breasts; Z78.0 Asymptomatic menopausal state
CPT/HCPCS: 77063; 77067